=== PATIENT | male | born 1940 | race Caucasian/White ===

== ENCOUNTER → 2024-02-23 | Outpatient (CLI) | payer MEDICARE, BC, SELFPAY ==
[2024-02-23 11:17] LABS: Collection Type, Urine Clean Catch; Squamous Epithelial Cell,Urine 0 /hpf (0-5)
[2024-02-23 13:34] LABS: Bacteria,Urine 1+; Bilirubin,Urine Negative (Negative); Blood,Urine Negative (Negative); Clarity,Urine Clear (Clear/Hazy); Color,Urine Lt-Yellow (Lt Yel-Yel); Glucose, Urine Negative (Negative); Ketones,Urine Negative (Negative); Leukocyte Esterase,Urine Positive (Negative); Nitrite,Urine Negative (Negative); PH,Urine 6.5 (5.0-7.0); Protein,Urine Negative (Neg - Trace); RBC,Urine 3 /hpf (0-3); Specific Gravity,Urine 1.008 (1.001-1.035); Urobilinogen,Urine Negative mg/dL (0.0-1.0); WBC,Urine 48 /hpf (0-5)
== END | disposition home or self-care (01) ==
LOC: SLDO 11:01
PROVIDERS: PCP Physician Assistant; Referring Provider Physician Assistant; Visit Provider Physician Assistant
DX: N39.0 Urinary tract infection, site not specified (principal)
CPT/HCPCS: 81001; 87077; 87086; 87186

== ENCOUNTER → 2024-04-21 | Outpatient (CLI) | payer MEDICARE, BC, SELFPAY ==
[2024-04-21 11:42] LABS: Basophils # (Auto) 0.1 Thou/mm3 (0.0-0.2); Basophils % (Auto) 0 % (0-2.5); Eosinophils # (Auto) 0.8 Thou/mm3 (0.0-0.5); Eosinophils % (Auto) 7 % (0-10); Hematocrit 38.2 % (41.0-53.0); Hemoglobin 12.5 g/dL (13.5-16.0); Immature Granulocytes % (Auto) 0 % (0-0); Immature Granulocytes Auto 0.04 Thou/mm3 (0.00-0.00); Lymphocytes # (Auto) 2.1 Thou/mm3 (1.0-4.8); Lymphocytes % (Auto) 19 % (10-50); Mean Corpuscular HGB Conc 32.7 g/dl (31.0-37.0); Mean Corpuscular Hemoglobin 30.1 pg (25.0-35.0); Mean Corpuscular Volume 92 fL (80-100); Monocytes # (Auto) 0.7 Thou/mm3 (0.0-0.8); Monocytes % (Auto) 6 % (0-12); Neutrophils # (Auto) 7.5 Thou/mm3 (1.8-7.7); Neutrophils % (Auto) 68 % (37-80); Nucleated Red Blood Cell % 0 /100 WBC (0); Platelet Count 208 Thou/mm3 (140-440); RDW Standard Deviation 49.1 fL (35.1-43.9); Red Blood Count 4.15 Miln/mm3 (4.50-5.90); White Blood Count 11.1 Thou/mm3 (3.8-10.6)
[2024-04-21 11:59] LABS: Glucose Estimated Average 169 mg/dL (80-131); Hemoglobin A1C 7.5 % Hgb (4.8-6.0)
[2024-04-21 12:02] LABS: Alanine Aminotransferase 22 U/L (10-49); Albumin, Serum 3.3 gm/dL (3.4-4.8); Albumin/Globulin Ratio 1.4 (1.2-2.2); Alkaline Phosphatase 104 U/L (46-116); Anion Gap 8 (7-16); Aspartate Amino Transferase 17 U/L (0-34); BUN/Creatinine Ratio 31 Ratio (12-20); Bilirubin,Total 0.6 mg/dL (0.3-1.2); Blood Urea Nitrogen 31 mg/dL (9-23); Calcium 8.6 mg/dL (8.3-10.6); Calcium (Corrected) 9.2 mg/dL (8.5-10.1); Carbon Dioxide 30.9 mMol/L (20.0-31.0); Cardiac Risk Estimate 2.3 RATIO (4.0-6.7); Chloride 102 mMol/L (98-107); Cholesterol 80 mg/dL (132-200); Globulin 2.4 gm/dL (2.3-3.5); Glucose 63 mg/dL (74-106); HDL Cholesterol 35 mg/dL (40-60); LDL Cholesterol,Calculated 34 mg/dL (0-130); Osmolality,Calculated 285 (275-295); Potassium 4.2 mMol/L (3.4-5.1); Sodium 141 mMol/L (136-145); Thyroid Stimulating Hormone 3.01 uIU/mL (0.55-4.78); Total Protein 5.7 gm/dL (5.7-8.2); Triglycerides 53 mg/dL (30-150); eGFR > 60 See Note
[2024-04-21 12:27] LABS: Ferritin 303 ng/mL (10.5-307.3); Iron 47 mcg/dL (65-175)
== END | disposition home or self-care (01) ==
LOC: COPL 10:31 → SLDO 10:34
PROVIDERS: PCP Physician Assistant; Referring Provider Physician Assistant; Visit Provider Physician Assistant
DX: E11.65 Type 2 diabetes mellitus with hyperglycemia (principal); I10 Essential (primary) hypertension; E78.5 Hyperlipidemia, unspecified; E03.0 Congenital hypothyroidism with diffuse goiter; D50.9 Iron deficiency anemia, unspecified
CPT/HCPCS: 36415; 80053; 80061; 82728; 83036; 83540; 84443; 85025

== ENCOUNTER → 2024-05-05 | Outpatient (CLI) | payer MEDICARE, BC, SELFPAY ==
[2024-05-05 16:07] LABS: Collection Type, Urine Clean Catch
[2024-05-05 17:41] LABS: Bacteria,Urine 1+; Bilirubin,Urine Negative (Negative); Blood,Urine Negative (Negative); Clarity,Urine Clear (Clear/Hazy); Color,Urine Yellow (Lt Yel-Yel); Glucose, Urine Negative (Negative); Hyaline Casts,Urine < 1 /hpf (0-1); Ketones,Urine Negative (Negative); Leukocyte Esterase,Urine Positive (Negative); Nitrite,Urine Negative (Negative); PH,Urine 6.5 (5.0-7.0); Protein,Urine Trace (Neg - Trace); RBC,Urine 2 /hpf (0-3); Specific Gravity,Urine 1.018 (1.001-1.035); Squamous Epithelial Cell,Urine < 1 /hpf (0-5); Urobilinogen,Urine Negative mg/dL (0.0-1.0); WBC,Urine 64 /hpf (0-5)
== END | disposition home or self-care (01) ==
LOC: SLDO 15:44
PROVIDERS: PCP Physician Assistant; Referring Provider Physician Assistant; Visit Provider Physician Assistant
DX: N39.0 Urinary tract infection, site not specified (principal)
CPT/HCPCS: 81001; 87077; 87086; 87186

== ENCOUNTER → 2024-08-02 | Outpatient (CLI) | payer MEDICARE, BC, SELFPAY ==
[2024-08-02 11:54] LABS: Collection Type, Urine Clean Catch
[2024-08-02 13:03] LABS: Amphetamine/Methamp Scrn,U Negative (Negative); Barbiturate Screen,Urine Negative (Negative); Benzodiazepines Screen,Urine Negative (Negative); Benzoylecgonine Screen, Ur Negative (Negative); Creatinine MALB Rnd Ur 144 mg/dL (30-125); Fentanyl Screen,Urine Negative (Negative); Microalbumin Creat Ratio 147 mg/gCrea (<30); Microalbumin, Random Urine 212 mg/L (0-300); Opiate Screen,Urine Positive (Negative); THC Screen,Urine Negative (Negative)
[2024-08-02 13:07] LABS: Basophils % (Auto) 1 % (0-2.5); Eosinophils # (Auto) 0.4 Thou/mm3 (0.0-0.5); Eosinophils % (Auto) 5 % (0-10); Hematocrit 32.4 % (41.0-53.0); Hemoglobin 10.4 g/dL (13.5-16.0); Immature Granulocytes % (Auto) 0 % (0-0); Immature Granulocytes Auto 0.02 Thou/mm3 (0.00-0.00); Lymphocytes # (Auto) 1.2 Thou/mm3 (1.0-4.8); Lymphocytes % (Auto) 16 % (10-50); Mean Corpuscular HGB Conc 32.1 g/dl (31.0-37.0); Mean Corpuscular Hemoglobin 30.3 pg (25.0-35.0); Mean Corpuscular Volume 95 fL (80-100); Monocytes # (Auto) 0.5 Thou/mm3 (0.0-0.8); Monocytes % (Auto) 7 % (0-12); Neutrophils # (Auto) 5.1 Thou/mm3 (1.8-7.7); Neutrophils % (Auto) 71 % (37-80); Nucleated Red Blood Cell % 0 /100 WBC (0); Platelet Count 179 Thou/mm3 (140-440); RDW Standard Deviation 51.8 fL (35.1-43.9); Red Blood Count 3.43 Miln/mm3 (4.50-5.90); White Blood Count 7.1 Thou/mm3 (3.8-10.6)
[2024-08-02 13:12] LABS: Vitamin B12 707 pg/mL (211-911); Vitamin D 25 Hydroxy Total 39.6 ng/mL (7.3-40.2)
[2024-08-02 13:19] LABS: Alanine Aminotransferase 10 U/L (10-49); Albumin, Serum 3.4 gm/dL (3.4-4.8); Albumin/Globulin Ratio 1.5 (1.2-2.2); Alkaline Phosphatase 109 U/L (46-116); Anion Gap 13 (7-16); Aspartate Amino Transferase 13 U/L (0-34); BUN/Creatinine Ratio 17 Ratio (12-20); Bilirubin,Total 0.5 mg/dL (0.3-1.2); Blood Urea Nitrogen 20 mg/dL (9-23); Calcium 8.2 mg/dL (8.3-10.6); Calcium (Corrected) 8.7 mg/dL (8.5-10.1); Carbon Dioxide 30.9 mMol/L (20.0-31.0); Cardiac Risk Estimate 1.9 RATIO (4.0-6.7); Chloride 102 mMol/L (98-107); Cholesterol 72 mg/dL (132-200); Creatinine (Component) 1.2 mg/dL (0.6-1.3); Globulin 2.2 gm/dL (2.3-3.5); Glucose 78 mg/dL (74-106); HDL Cholesterol 38 mg/dL (40-60); LDL Cholesterol,Calculated 22 mg/dL (0-130); Osmolality,Calculated 292 (275-295); Potassium 4.5 mMol/L (3.4-5.1); Sodium 146 mMol/L (136-145); Thyroid Stimulating Hormone 2.64 uIU/mL (0.55-4.78); Total Protein 5.6 gm/dL (5.7-8.2); Triglycerides 60 mg/dL (30-150); eGFR > 60 See Note
[2024-08-02 13:36] LABS: Ferritin 260 ng/mL (10.5-307.3); Iron 35 mcg/dL (65-175); Prostate Specific Antigen 2.95 ng/mL (0-4.00)
[2024-08-02 13:39] LABS: Bacteria,Urine 1+; Bilirubin,Urine Negative (Negative); Blood,Urine Negative (Negative); Color,Urine Yellow (Lt Yel-Yel); Glucose, Urine Negative (Negative); Ketones,Urine Negative (Negative); Leukocyte Esterase,Urine Positive (Negative); Nitrite,Urine Negative (Negative); Protein,Urine 1+ (Neg - Trace); RBC,Urine 7 /hpf (0-3); Specific Gravity,Urine 1.023 (1.001-1.035); Squamous Epithelial Cell,Urine < 1 /hpf (0-5); WBC,Urine 130 /hpf (0-5)
[2024-08-02 13:53] LABS: Glucose Estimated Average 157 mg/dL (80-131); Hemoglobin A1C 7.1 % Hgb (4.8-6.0)
[2024-08-02 13:55] LABS: Culture Indicated,Urine Yes
[2024-08-02 13:56] LABS: Clarity,Urine Hazy (Clear/Hazy)
== END | disposition home or self-care (01) ==
LOC: SLDO 11:47
PROVIDERS: Referring Provider Physician Assistant; Visit Provider Physician Assistant
DX: D50.9 Iron deficiency anemia, unspecified (principal); D72.829 Elevated white blood cell count, unspecified; E03.9 Hypothyroidism, unspecified; E11.65 Type 2 diabetes mellitus with hyperglycemia; E78.5 Hyperlipidemia, unspecified; I10 Essential (primary) hypertension; Z79.891 Long term (current) use of opiate analgesic
CPT/HCPCS: 36415; 80053; 80061; 80307; 81001; 82043; 82306; 82570; 82607; 82728; 83036; 83540; 84153; 84443; 85025; 87077; 87086; 87186

== ENCOUNTER → 2024-08-19 | Outpatient (CLI) | payer MEDICARE, BC, SELFPAY ==
[2024-08-19 16:23] LABS: Collection Type, Urine Clean Catch
[2024-08-19 17:36] LABS: Bilirubin,Urine Negative (Negative); Blood,Urine Trace (Negative); Clarity,Urine Clear (Clear/Hazy); Color,Urine Yellow (Lt Yel-Yel); Glucose, Urine Negative (Negative); Hyaline Casts,Urine < 1 /hpf (0-1); Ketones,Urine Negative (Negative); Leukocyte Esterase,Urine Positive (Negative); Nitrite,Urine Negative (Negative); Protein,Urine 1+ (Neg - Trace); RBC,Urine 8 /hpf (0-3); Specific Gravity,Urine 1.024 (1.001-1.035); Squamous Epithelial Cell,Urine 1 /hpf (0-5); WBC,Urine 52 /hpf (0-5)
== END | disposition home or self-care (01) ==
LOC: SLDO 16:18
PROVIDERS: PCP Physician Assistant; Referring Provider Physician Assistant; Visit Provider Physician Assistant
DX: N39.0 Urinary tract infection, site not specified (principal)
CPT/HCPCS: 81001; 87086

== ENCOUNTER → 2024-08-26 | Outpatient (CLI) | payer MEDICARE, BC, SELFPAY ==
[2024-08-26 15:54] LABS: Collection Type, Urine Clean Catch
[2024-08-26 16:23] LABS: Bacteria,Urine 2+; Bilirubin,Urine Negative (Negative); Blood,Urine 1+ (Negative); Color,Urine Yellow (Lt Yel-Yel); Glucose, Urine Negative (Negative); Ketones,Urine Negative (Negative); Leukocyte Esterase,Urine Positive (Negative); Nitrite,Urine Positive (Negative); Protein,Urine 1+ (Neg - Trace); RBC,Urine 7 /hpf (0-3); Specific Gravity,Urine 1.016 (1.001-1.035); Squamous Epithelial Cell,Urine < 1 /hpf (0-5); Urobilinogen,Urine Negative mg/dL (0.0-1.0); WBC,Urine 718 /hpf (0-5)
[2024-08-26 16:32] LABS: Clarity,Urine Hazy (Clear/Hazy)
== END | disposition home or self-care (01) ==
LOC: SLDO 15:47
PROVIDERS: PCP Family Medicine; Referring Provider Physician Assistant; Visit Provider Physician Assistant
DX: N39.0 Urinary tract infection, site not specified (principal)
CPT/HCPCS: 81001; 87077; 87086; 87186

== ENCOUNTER → 2024-10-10 | Outpatient (CLI) | payer MEDICARE, BC, SELFPAY ==
[2024-10-10 14:38] LABS: Collection Type, Urine Clean Catch
[2024-10-10 16:41] LABS: Bacteria,Urine 1+; Bilirubin,Urine Negative (Negative); Blood,Urine 1+ (Negative); Clarity,Urine Turbid (Clear/Hazy); Color,Urine Drk-Yellow (Lt Yel-Yel); Glucose, Urine Negative (Negative); Hyaline Casts,Urine < 1 /hpf (0-1); Ketones,Urine Negative (Negative); Leukocyte Esterase,Urine Positive (Negative); Nitrite,Urine Positive (Negative); PH,Urine 6.0 (5.0-7.0); Protein,Urine 1+ (Neg - Trace); RBC,Urine 16 /hpf (0-3); Specific Gravity,Urine 1.030 (1.001-1.035); Squamous Epithelial Cell,Urine 1 /hpf (0-5); Urobilinogen,Urine 2.0 mg/dL (0.0-1.0); WBC,Urine 619 /hpf (0-5)
[2024-10-10 16:44] LABS: Culture Indicated,Urine Yes
== END | disposition home or self-care (01) ==
LOC: SLDO 14:28
PROVIDERS: PCP Nurse Practitioner Family; Referring Provider Nurse Practitioner Family; Visit Provider Nurse Practitioner Family
DX: N39.0 Urinary tract infection, site not specified (principal)
CPT/HCPCS: 81001; 87086

== ENCOUNTER → 2024-11-04 | Outpatient (CLI) | payer MEDICARE, BC, SELFPAY ==
[2024-11-04 15:33] LABS: Amphetamine/Methamp Scrn,U Negative (Negative); Barbiturate Screen,Urine Negative (Negative); Benzodiazepines Screen,Urine Negative (Negative); Benzoylecgonine Screen, Ur Negative (Negative); Fentanyl Screen,Urine Negative (Negative); Opiate Screen,Urine Positive (Negative); THC Screen,Urine Positive (Negative)
== END | disposition home or self-care (01) ==
LOC: SLDO 14:39
PROVIDERS: Referring Provider Physician Assistant; Visit Provider Physician Assistant
DX: Z79.891 Long term (current) use of opiate analgesic (principal)
CPT/HCPCS: 80307

== ENCOUNTER → 2024-11-07 | Outpatient (CLI) | payer MEDICARE, BC, SELFPAY ==
[2024-11-07 11:15] LABS: Basophils # (Auto) 0.1 Thou/mm3 (0.0-0.2); Basophils % (Auto) 1 % (0-2.5); Eosinophils # (Auto) 0.3 Thou/mm3 (0.0-0.5); Eosinophils % (Auto) 6 % (0-10); Hematocrit 36.6 % (41.0-53.0); Hemoglobin 11.4 g/dL (13.5-16.0); Immature Granulocytes Auto 0.01 Thou/mm3 (0.00-0.00); Lymphocytes # (Auto) 0.9 Thou/mm3 (1.0-4.8); Lymphocytes % (Auto) 18 % (10-50); Mean Corpuscular HGB Conc 31.1 g/dl (31.0-37.0); Mean Corpuscular Hemoglobin 30.1 pg (25.0-35.0); Mean Corpuscular Volume 97 fL (80-100); Monocytes # (Auto) 0.4 Thou/mm3 (0.0-0.8); Monocytes % (Auto) 7 % (0-12); Neutrophils # (Auto) 3.5 Thou/mm3 (1.8-7.7); Neutrophils % (Auto) 68 % (37-80); Nucleated Red Blood Cell # 0.00 Thou/mm3 (0.00-0.00); Nucleated Red Blood Cell % 0 /100 WBC (0); Platelet Count 170 Thou/mm3 (140-440); RDW Standard Deviation 59.7 fL (35.1-43.9); Red Blood Count 3.79 Miln/mm3 (4.50-5.90); White Blood Count 5.2 Thou/mm3 (3.8-10.6)
[2024-11-07 11:31] LABS: Alanine Aminotransferase 11 U/L (10-49); Albumin, Serum 3.5 gm/dL (3.4-4.8); Albumin/Globulin Ratio 1.5 (1.2-2.2); Alkaline Phosphatase 110 U/L (46-116); Anion Gap 11 (7-16); Aspartate Amino Transferase 18 U/L (0-34); BUN/Creatinine Ratio 17 Ratio (12-20); Bilirubin,Total 0.6 mg/dL (0.3-1.2); Blood Urea Nitrogen 22 mg/dL (9-23); Calcium 8.8 mg/dL (8.3-10.6); Calcium (Corrected) 9.2 mg/dL (8.5-10.1); Carbon Dioxide 26.9 mMol/L (20.0-31.0); Cardiac Risk Estimate 1.6 RATIO (4.0-6.7); Chloride 107 mMol/L (98-107); Cholesterol 80 mg/dL (132-200); Creatinine (Component) 1.3 mg/dL (0.6-1.3); Globulin 2.3 gm/dL (2.3-3.5); Glucose 101 mg/dL (74-106); HDL Cholesterol 49 mg/dL (40-60); LDL Cholesterol,Calculated 13 mg/dL (0-130); Osmolality,Calculated 292 (275-295); Potassium 4.3 mMol/L (3.4-5.1); Sodium 145 mMol/L (136-145); Thyroid Stimulating Hormone 4.67 uIU/mL (0.55-4.78); Total Protein 5.8 gm/dL (5.7-8.2); Triglycerides 89 mg/dL (30-150); eGFR 55 See Note
[2024-11-07 11:36] LABS: Glucose Estimated Average 154 mg/dL (80-131); Hemoglobin A1C 7.0 % Hgb (4.8-6.0)
[2024-11-07 11:38] LABS: Iron 45 mcg/dL (65-175)
[2024-11-07 11:55] LABS: Ferritin 306 ng/mL (10.5-307.3)
== END | disposition home or self-care (01) ==
LOC: SLDO 10:26
PROVIDERS: PCP Physician Assistant; Referring Provider Physician Assistant; Visit Provider Physician Assistant
DX: I10 Essential (primary) hypertension (principal); E11.65 Type 2 diabetes mellitus with hyperglycemia; D50.9 Iron deficiency anemia, unspecified; E03.9 Hypothyroidism, unspecified; E78.5 Hyperlipidemia, unspecified; R80.9 Proteinuria, unspecified; R31.9 Hematuria, unspecified
CPT/HCPCS: 36415; 80053; 80061; 82728; 83036; 83540; 84443; 85025

== ENCOUNTER → 2024-11-08 | Outpatient (CLI) | payer MEDICARE, BC, SELFPAY ==
[2024-11-08 15:00] LABS: Collection Type, Urine Clean Catch
[2024-11-08 17:27] LABS: Bacteria,Urine 4+; Bilirubin,Urine 2+ (Negative); Blood,Urine 2+ (Negative); Color,Urine Drk-Orange (Lt Yel-Yel); Glucose, Urine Negative (Negative); Hyaline Casts,Urine < 1 /hpf (0-1); Ketones,Urine Negative (Negative); Leukocyte Esterase,Urine Positive (Negative); Nitrite,Urine Positive (Negative); PH,Urine 6.5 (5.0-7.0); Protein,Urine 1+ (Neg - Trace); RBC,Urine 27 /hpf (0-3); Specific Gravity,Urine 1.032 (1.001-1.035); Squamous Epithelial Cell,Urine 1 /hpf (0-5); Urobilinogen,Urine 4.0 mg/dL (0.0-1.0); WBC,Urine 718 /hpf (0-5)
[2024-11-08 17:45] LABS: Clarity,Urine Cloudy (Clear/Hazy)
== END | disposition home or self-care (01) ==
LOC: SLDO 14:41
PROVIDERS: PCP Family Medicine; Referring Provider Physician Assistant; Visit Provider Physician Assistant
DX: N39.0 Urinary tract infection, site not specified (principal)
CPT/HCPCS: 81001; 87077; 87086; 87186

== ENCOUNTER 2024-11-27 16:14 | Inpatient (IN) | payer MEDICARE, BC, SELFPAY ==
[2024-11-27] VITALS (35 sets, daily range): BP systolic 71–142; BP diastolic 41–80; PULSE 75–110; RESP 15–37; TEMP 36.4–36.6; O2SAT 90–99; BMI 25.0
--- NOTE | 2024-11-27 16:29 | EKG_ITS ---
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
--- NOTE | 2024-11-27 16:46 | PD.EDSOB ---
ED SOB =RME/HPI General Chief Complaint: Shortness of Breath/Dyspnea Stated Complaint: SOB Time Seen by Provider: 11/27/24 16:27 Arrival date/time: 11/27/24 16:14 Limitations: no limitations RME / HPI RME / HPI Narrative: DR. MOLINA MAIN ED EVALUATION: 84-year-old male with past medical history of prostate cancer status post Lupron and radiation, congestive heart failure, open heart surgery with valve repair in 2002. Pulmonary fibrosis, and pacemaker placement presents to the Emergency Department with shortness of breath. He was noted to be hypoxic with O2 sat of 80% on arrival on his baseline 4 L. He denies chest pain, abdominal pain, fever, or chills. Patient has been feeling unwell for some time has been avoiding coming to the hospital and today asked his to call 911. Patient usually has to straight cath to empty his bladder however has been too weak to do so. Patient takes oral Bumex 4mg, spironolactone 25mg, aspirin, levothyroxine, tadalafil, ,atorvastatin Related Data Home Medications ?Medication ?Instructions ?Recorded ?Confirmed amlodipine 2.5 mg tablet 2.5 mg PO QDAY 05/14/21 04/15/23 omeprazole 20 mg capsule,delayed 20 mg PO BID 05/14/21 05/07/23 release ferrous sulfate 325 mg (65 mg 325 mg PO QDAY 04/15/23 05/07/23 iron) tablet insulin glargine 100 unit/mL (3 24 unit subcut HS 04/15/23 05/07/23 mL) subcutaneous pen (Lantus Solostar U-100 Insulin) Previous Rx's ?Medication ?Instructions ?Recorded bumetanide 0.5 mg tablet 2 mg (4 x 0.5 mg) PO QAM #0 tabs 05/09/23 Allergies Allergy/AdvReac Type Severity Reaction Status Date / Time No Known Allergies Allergy Verified 03/16/23 12:55 Review of Systems Review of Systems Systems Reviewed: All systems reviewed, normal except as documented Past Medical History Past Medical History NEUROLOGIC: Positive Cerebrovascular Accident CARDIAC: Positive Cardiac Disorders, Coronary Artery Disease, Hypercholesterolemia, Congestive Heart Failure, Valvular Heart Disease and Hypertension RESPIRATORY: Positive Chronic Obstructive Pulmonary Disease (COPD), Bronchitis, Pneumonia, Cough and Exposure to Respiratory Irritants GASTROINTESTINAL: Positive Gastrointestinal Disorders, Hiatal Hernia and Gastroesophageal Reflux Disease GENITOURINARY: Positive Genitourinary Disorders, Kidney Stones, Prostate Cancer and Benign Prostatic Hyperplasia MUSCULOSKELETAL: Positive Musculoskeletal Disorders, Arthritis and Scoliosis ENT: Positive Deafness ENDOCRINE: Positive Endocrine Disorders and Diabetes Mellitus Type 2 HEMATOLOGIC: Positive Anemia OTHER HISTORY: Positive Radiation Therapy, Cancer and Prostate Cancer Family History FAMILY HISTORY: Positive Family Cardiac Disorders and Family Cancer Surgical History SURGICAL: Positive Cardiac Surgery, Coronary Artery Bypass Graft and Vasectomy Social History SMOKING STATUS: Never smoker SUBSTANCE USE: does not use ED Exam General Limitations: Present no limitations General appearance: Present alert and other (chronically ill-appearing male who is dyspneic, tachypneic, and tachycardic in respiratory) Head Head exam: Present atraumatic, normocephalic and normal inspection Eye Eye exam: Present normal appearance, PERRL and EOMI ENT ENT exam: Present normal exam, normal oropharynx and mucous membranes moist Neck Neck exam: Present normal inspection and trachea midline Chest Chest inspection: Present normal inspection, symmetric chest wall rise and other (Coarse breath sounds bilaterally no wheezes) Respiratory Respiratory exam: Present other (dyspneic, tachypneic, in respiratory distress) Cardiovascular Cardiovascular exam: Present tachycardia Abdominal Exam Abdominal exam: Present soft; Absent distention, tenderness, guarding or rebound Extremities Exam Extremities exam: Present other (Bilateral lower extremity swelling) Back Exam Back exam: Present normal inspection Neurological Exam Neurological exam: Present alert and other (Answering questions appropriately however weak, able to move all 4 extremities however when) Psychiatric Psychiatric exam: Present normal affect and normal mood Skin Skin exam: Present warm, dry, intact and pallor Course Quality Measures none Orders Category Date Time Status Bedside COVID-19 Antigen Test NOW Care 11/27/24 17:24 Active Machine Tack Puller Q4H START 00 Care 11/27/24 16:55 Active EKG (ED ONLY) *Do not use* NOW Care 11/27/24 16:29 Completed Ritter [Urinary Catheter] X1 Care 11/27/24 16:54 Active Insert IV NOW Care 11/27/24 16:29 Active CXR [XR chest 1V] Stat Exams 11/27/24 17:29 Completed EKG (ED Only) Stat Exams 11/27/24 16:29 Ordered ABG [Arterial Blood Gas] Stat Lab 11/27/24 17:55 Ordered BNP [B-Type Natriuretic Peptide] Stat Lab 11/27/24 17:35 Received Blood Culture (Lab) Stat Lab 11/27/24 17:35 Received CBC [CBC] Stat Lab 11/27/24 16:35 Completed CMP [Comprehensive Metabolic Panel] Stat Lab 11/27/24 16:35 Completed Influenza A & B Rapid Panel Stat Lab 11/27/24 17:25 Ordered Lactate (Lactic Acid) Stat Lab 11/27/24 16:35 Completed Procalcitonin Stat Lab 11/27/24 16:35 Completed Troponin I Stat Lab 11/27/24 16:35 Completed Urinalysis Stat Lab 11/27/24 17:00 Completed Urine Culture Stat Lab 11/27/24 17:00 Received Azithromycin Inj [Zithromax Inj] 500 mg Med 11/28/24 14:00 Pending Sodium Chloride 0.9% 250 ml [Ns] 250 ml IV QDAY@1400 Azithromycin Inj [Zithromax Inj] 500 mg Med 11/27/24 17:30 Active Sodium Chloride 0.9% 250 ml [Ns] 250 ml IV X1 Norepinephrine/D5W 8mg/250ml [Levophed in D5W 8mg/250ml Med 11/27/24 16:31 Discontinued ] 8 mg in 250 ml IV 0.05 mcg/kg/min Norepinephrine/D5W 8mg/250ml [Levophed in D5W 8mg/250ml Med 11/27/24 16:35 Active ] 8 mg in 250 ml IV 0.05 mcg/kg/min cefTRIAXone [Rocephin] 1,000 mg Med 11/27/24 17:27 Discontinued SODIUM CHLORIDE 0.9% (Popper) [Ns 0.9% (P)] 50 ml IV X1 Vital Signs Vital signs: Vital Signs Temperature 97.6 F 11/27/24 16:16 Pulse Rate 102 H 11/27/24 16:16 Respiratory Rate 21 H 11/27/24 16:16 Blood Pressure 75/50 L 11/27/24 16:16 Pulse Oximetry (%) 98 11/27/24 16:16 Oxygen Delivery Method Oxy Mask 11/27/24 16:16 Shortness of Breath / Dyspnea MDM Narrative MDM Narrative:: Patient is an 84-year-old male with medical history notable for CHF, prostate cancer, that presents to the emergency department with worsening shortness of breath. Vital signs and exam as listed. Patient tachycardic and tachypnea concerning for sepsis. Ordered sepsis order set. EMS provided patient with 500 cc of saline. When patient arrived we stopped fluids given his history of CHF. Patient was persistently hypotensive we started him on Levophed. Also concern for CHF, ACS, COPD exacerbation, arrhythmia also concern for possible pulmonary embolus. Ordered labs EKG chest x-ray. Provided patient with supplemental oxygen. His oxygen saturation improved to greater than 95% on 15 L and is now comfortable, less dyspneic no longer hypoxic. Labs with evidence of leukocytosis 15, with left shift. Urinalysis with evidence of infection. Patient was incontinent when he arrived. Antibiotics provided. Procalcitonin elevated. He does have a history of prostate cancer not currently on treatment. Patient with acute kidney injury, creatinine 3.4, previously normal, elevated BUN, potassium 5.3. Patient lactic acid 3.0. Troponin 0.486, EKG is paced rhythm, does not meet Sgarbossa criteria. Patient declines any chest pain, has only been complaining of worsening progressive shortness of breath for some time. Chest x-ray with pneumonia and prominent heart failure. Discussed case with on-call coverage analyst Dr. Norton accepts patient for admission to ICU. 6:25p Called patient skin toggler Dr. Markell Linares, discussed patient presentation, worsening hypoxia , lower extremity edema, diffuse pulmonary vascular congestion seen on chest x-ray, his labs with evidence of leukocytosis, acute kidney injury, and elevated troponin. Also discussed that patient has pneumonia and a urinary tract infection. He believes the patient is dry and does not recommend that we provide diuresis at this time. He will evaluate the patient. I also consulted on-call tube sizer operator Dr. Sethi, will follow the patient. I updated the ICU resident team on patient's skin toggler recommendations . ICU team will check in with consultants for further recommendations, as the patient's care is now transitioned to the ICU team. Cheryl Martinez, am scribing for and in the presence of Dr. Molina. Patient data External records reviewed:: [facility] previous records Clinical information provided by:: patient and EMS Social determinants that could affect healthcare access:: none Patient has the following chronic illnesses:: Past medical history of prostate cancer status post Lupron and radiation, congestive heart failure, and pacemaker placement. At baseline, he requires 4 L of home oxygen. How is presenting disease/condition affected by chronic disease/condition?: exacerbated by Evaluation data The following diagnostics were reviewed and interpreted by me:: lab results, radiology exam(s) and EKG tracing(s) (My interpretation: EKG performed at 1629 hours, paced rhythm, rate 110, prolonged IN interval at 254, normal QT, non specific T wave changes, not a cardiac alert) Lab and/or radiology exams considered but not ordered:: none Interpretation Summary: See MDM narrative above. Medications / Prescriptions Medications or Prescriptions considered but not ordered:: none Medication administrations:: Medication Administration History Norepinephrine/Dextrose (Levophed In D5w 8mg/250ml) 8 mg in 250 mls @ 8.292 mls/hr IV .Q24H PRN; Protocol PRN Reason: PER PROTOCOL Stop: 12/27/24 16:34 Last Titration: 11/27/24 18:00 Dose: 0.05 mcg/kg/min, 8.292 mls/hr Documented By: Titration: 11/27/24 17:46 Dose: 0.05 mcg/kg/min, 8.292 mls/hr Documented By: Titration: 11/27/24 17:30 Dose: 0.07 mcg/kg/min, 11.609 mls/hr Documented By: Titration: 11/27/24 17:25 Dose: 0.07 mcg/kg/min, 11.609 mls/hr Documented By: Admin: 11/27/24 17:20 Dose: 0.05 mcg/kg/min, 8.292 mls/hr Documented By: YOVANI Azithromycin 500 mg/ Sodium (Chloride) 250 mls @ 250 mls/hr IV QDAY@1400 JOAN Stop: 12/05/24 13:59 Azithromycin 500 mg/ Sodium (Chloride) 250 mls @ 250 mls/hr IV X1 ONE Stop: 11/27/24 18:29 Discontinued Medications Norepinephrine/Dextrose (Levophed In D5w 8mg/250ml) 8 mg in 250 mls @ 8.292 mls/hr IV .Q24H PRN; Protocol PRN Reason: PER PROTOCOL Stop: 12/27/24 16:30 Ceftriaxone Sodium 1,000 mg/ (Sodium Chloride) 50 mls @ 100 mls/hr IV X1 ONE Stop: 11/27/24 17:56 Last Admin: 11/27/24 17:39 Dose: 100 mls/hr Documented By: DB see above Consultations Consultation(s) initiated? (list below): Yes Diagnosis Shortness of Breath Differential Diagnosis: other (CHF exacerbation, COPD exacerbation, and pneumonia.) Most likely diagnosis given after review of the tests above:: Septic shock, cardiogenic shock, urinary tract infection, pneumonia, CHF exacerbation, hypoxic respiratory failure Admission Indicated Admission indicated?: indicated Admission Request Was there a request for admission?: Yes Admission Attestation Admission request attestation: Discussed case with Hospitalist service regarding admission. Discussed patients ED course, exam findings, labs, and radiology results. The Hospitalist [agrees] to accept the patient for admission. Disposition Plan Disposition Plan: Admit Critical Care Time Critical Care Time Critical Care Time: Yes Total Critical Care Time (min.): 60 Attestation: The high probability of sudden, clinically significant deterioration in the patient?s condition required the highest level of my preparedness to intervene urgently. The services I provided to this patient were to treat and/or prevent clinically significant deterioration. Services included the following: chart data review, reviewing nursing notes and/or old charts, documentation time, sap treasury consultant collaboration regarding findings and treatment options, medication orders and management, direct patient care, vital sign assessments and ordering, interpreting and reviewing diagnostic studies and lab tests. Aggregate critical care time includes only time during which I was engaged in work directly related to the patient?s care, as described above, whether at bedside or elsewhere in the Emergency Department. It did not include time spent performing other reported procedures or the services of residents, students, nurses or physician assistants. Discharge Plan Plan Patient Disposition: Admit Acute Care w/in Hospital Prescriptions/Referrals Prescriptions/Med Rec: No Action amlodipine 2.5 mg tablet 2.5 mg PO QDAY Patient Comments: TAKE 1 TABLET BY MOUTH EVERY DAY omeprazole 20 mg capsule,delayed release(DR/EC) 20 mg PO BID Patient Comments: TAKE 1 CAPSULE BY MOUTH TWICE DAILY ferrous sulfate 325 mg (65 mg iron) Tablet 325 mg PO QDAY insulin glargine [Lantus Solostar U-100 Insulin] 100 unit/mL (3 mL) Insulin Pen 24 unit SUBCUT HS bumetanide 0.5 mg Tablet 2 mg PO QAM Qty: 0 0RF Referrals: No Primary/Family,Physician [Primary Care Provider] - In 1 week Problem List Clinical Impression: Septic shock, Cardiogenic shock, CHF exacerbation, Pneumonia, Urinary tract infection Patient/Caregiver Discharge Instructions Print Language: Korean Stand Alone Forms: Cherri Award Info., Patient Portal Info Letter
[2024-11-27 16:49] LABS: Lactate (Lactic Acid) 3.0 mMol/L (0.4-2.0)
[2024-11-27 17:19] LABS: Basophils # (Auto) 0.0 Thou/mm3 (0.0-0.2); Basophils % (Auto) 0 % (0-2.5); Eosinophils # (Auto) 0.0 Thou/mm3 (0.0-0.5); Eosinophils % (Auto) 0 % (0-10); Hematocrit 39.7 % (41.0-53.0); Hemoglobin 12.6 g/dL (13.5-16.0); Immature Granulocytes Auto 0.18 Thou/mm3 (0.00-0.00); Lymphocytes # (Auto) 0.5 Thou/mm3 (1.0-4.8); Lymphocytes % (Auto) 3 % (10-50); Mean Corpuscular HGB Conc 31.7 g/dl (31.0-37.0); Mean Corpuscular Hemoglobin 31.1 pg (25.0-35.0); Mean Corpuscular Volume 98 fL (80-100); Monocytes # (Auto) 0.8 Thou/mm3 (0.0-0.8); Monocytes % (Auto) 5 % (0-12); Neutrophils # (Auto) 13.9 Thou/mm3 (1.8-7.7); Neutrophils % (Auto) 90 % (37-80); Nucleated Red Blood Cell # 0.00 Thou/mm3 (0.00-0.00); Nucleated Red Blood Cell % 0 /100 WBC (0); Platelet Count 144 Thou/mm3 (140-440); RDW Standard Deviation 66.8 fL (35.1-43.9); Red Blood Count 4.05 Miln/mm3 (4.50-5.90); White Blood Count 15.5 Thou/mm3 (3.8-10.6)
[2024-11-27] MEDS: Norepinephrine/D5W 8mg/250ml 8 MG/250 ML BAG 8.292 MG IV (17:20)
[2024-11-27 17:22] LABS: Collection Type, Urine Clean Catch
--- NOTE | 2024-11-27 17:29 | XR_ITS ---
Examination: AP chest single view Technique one AP portable semiupright chest single view Date and time: November 27, 2024, 1733 hrs., Comparison May 08, 2023 Indications: Shortness of breath today. Findings: Prominent CHF Enlarged cardiac contour, ectatic enlarged thoracic aorta, prominent vascular congestion with perihilar edema, consider superimposed extensive pneumonia throughout the lungs Transvenous dual-chamber bipolar cardiac leads satisfactory position Impression: Prominent heart failure Consider superimposed significant bilateral pneumonia
[2024-11-27 17:34] LABS: Bacteria,Urine 3+; Bilirubin,Urine Negative (Negative); Blood,Urine 2+ (Negative); Clarity,Urine Turbid (Clear/Hazy); Color,Urine Yellow (Lt Yel-Yel); Glucose, Urine Negative (Negative); Ketones,Urine Negative (Negative); Leukocyte Esterase,Urine Positive (Negative); Nitrite,Urine Negative (Negative); PH,Urine 6.0 (5.0-7.0); Protein,Urine 2+ (Neg - Trace); RBC,Urine 20 /hpf (0-3); Specific Gravity,Urine 1.028 (1.001-1.035); Squamous Epithelial Cell,Urine 14 /hpf (0-5); Transitional Epi Cells,Urine 1 /hpf (0-5); Urobilinogen,Urine Negative mg/dL (0.0-1.0); WBC,Urine 2356 /hpf (0-5)
[2024-11-27] MEDS: cefTRIAXone 1,000 MG in SODIUM CHLORIDE 0.9% (Popper) 50 ML 100 MG IV (17:39)
[2024-11-27 17:48] LABS: Alanine Aminotransferase 14 U/L (10-49); Albumin, Serum 3.1 gm/dL (3.4-4.8); Albumin/Globulin Ratio 1.3 (1.2-2.2); Alkaline Phosphatase 154 U/L (46-116); Anion Gap 11 (7-16); Aspartate Amino Transferase 23 U/L (0-34); BUN/Creatinine Ratio 12 Ratio (12-20); Bilirubin,Total 0.4 mg/dL (0.3-1.2); Blood Urea Nitrogen 40 mg/dL (9-23); Calcium 8.6 mg/dL (8.3-10.6); Calcium (Corrected) 9.3 mg/dL (8.5-10.1); Carbon Dioxide 23.3 mMol/L (20.0-31.0); Chloride 105 mMol/L (98-107); Creatinine (Component) 3.4 mg/dL (0.6-1.3); Estimated Creatinine Clearance 19.5 mL/min (>60); Globulin 2.4 gm/dL (2.3-3.5); Glucose 136 mg/dL (74-106); Osmolality,Calculated 289 (275-295); Potassium 5.3 mMol/L (3.4-5.1); Procalcitonin 4.62 ng/ml (0.0-0.49); Sodium 139 mMol/L (136-145); Total Protein 5.5 gm/dL (5.7-8.2); eGFR 17 See Note
[2024-11-27 18:03] LABS: Troponin I 0.486 ng/mL (0.0-0.045)
[2024-11-27] MEDS: AZITHROMYCIN INJ 500 MG in SODIUM CHLORIDE 0.9% 250 ML 250 ML 250 MG IV (18:23)
[2024-11-27 18:26] LABS: Base Excess -3 (-3-3); HCO3 23 mEq/L (20-26); O2 Saturation 97 % (91-98); PCO2 45 mmHg (32.0-48.0); PO2 87 mmHg (83-108); pH, Arterial 7.32 (7.35-7.45)
[2024-11-27 18:28] LABS: Allen Test Performed/OK; Inspired O2, VO2 Liters 6 L/min; Puncture Site Right Radial
[2024-11-27] MEDS: fentaNYL CIT INJ 50 mCg/ML AMP 2ML IVP (18:30)
[2024-11-27 18:36] LABS: B-Type Natriuretic Peptide 1845 pg/mL (0-100)
--- NOTE | 2024-11-27 19:07 | ECHO_ITS ---
Transthoracic Echo Report Ht (in): 74 Wt (lb): 195 Exam Location: Echo Lab Status: Emergency Application Software Developer: Jessica Maddne Indications: Procedure Performed: BP: 87 / 46 HR: 61 MEASUREMENTS (Male / Female) Normal Values 2D ECHO LV Diastolic Diameter PLAX 3.9 cm 4.2 - 5.9 / 3.9 - 5.3 cm LV Systolic Diameter PLAX 2.5 cm IVS Diastolic Thickness 0.8 cm 0.6 - 1.0 / 0.6 - 0.9 cm LVPW Diastolic Thickness 1.2 cm 0.6 - 1.0 / 0.6 - 0.9 cm LV Relative Wall Thickness 0.5 LVOT Diameter 1.9 cm LA Volume Index 28.1 cm?/m? 16 - 28 cm?/m? Ascending Aorta Diameter 3.5 cm M-MODE AV Cusp Separation MM 0.9 cm DOPPLER AV Peak Velocity 130.0 cm/s AV Peak Gradient 6.8 mmHg AV Mean Gradient 5.0 mmHg AV Velocity Time Integral 21.3 cm LVOT Peak Velocity 105.0 cm/s LVOT Peak Gradient 4.4 mmHg LVOT Velocity Time Integral 15.4 cm LVOT Cardiac Index 1236.2 cm?/min?m? AV Area Cont Eq vti 2.0 cm? AV Area Cont Eq pk 2.3 cm? MV Area PHT 2.8 cm? Mitral E Point Velocity 121.0 cm/s Mitral A Point Velocity 81.5 cm/s Mitral E to A Ratio 1.5 TR Peak Velocity 394.0 cm/s TR Peak Gradient 62.1 mmHg PV Peak Velocity 100.0 cm/s PV Peak Gradient 4.0 mmHg FINDINGS Left Ventricle Normal left ventricular size, wall thickness. Mild systolic dysfunction. Hypokinesis septal wall. Dyskinetic mid anterior wall. Flattened septal wall due to RV pressure and volume overload. The ejection fraction is visually estimated at 45 %. Right Ventricle The right ventricle is sevrely dilated. Severe systolic dsfunction. The estimated right ventricular systolic pressure, 75 mmHg with RAP 8. Severe PHTN Left Atrium The left atrial cavity size is mildly increased. Right Atrium The right atrial cavity size is moderately increased. Atrial Septum The interatrial septum appears normal with no evidence of a shunt. Aorta The aorta is normal by two-dimensional, color flow and Doppler interrogation. Mitral Valve Moderate thickening of the mitral valve leaflets. Mild mitral regurgitation. Severely decreased mobility of the posterior and anterior mitral valve leaflet. Aortic Valve Aortic valve sclerosis without stenosis. Tricuspid Valve The tricuspid valve is normal by two-dimensional, color flow and Doppler interrogation.there is moderate to severe tricuspid valve regurgitation. Pulmonic Valve Moderate pulmonic valve regurgitation. Vessels The pulmonary artery appears normal. The inferior vena cava pulmonary and hepatic veins appear normal. Pericardium The pericardium is normal by two-dimensional imaging. There is no significant pericardial effusion. CONCLUSIONS Indication: Assess EF, wall motion abnormalities, valvular function. Right atrium is dilated. Right ventricle is markedly dilated 5.5 cm in diameter twice the size of left ventricle with right ventricle pressure and volume overload consistent with severe pulmonary hypertension. Severe right ventricular systolic dysfunction. Left ventricle is normal in size with flattening of the septum which is deviated towards the left ventricle due to increased RV systolic pressure rest of the left ventricle wall motion normal ejection fraction of 45 to 50% preserved. Left atrium is mildly dilated. Aortic valve sclerosis no stenosis. Mitral valve thickening trace to mild mitral regurgitation. Severe tricuspid regurgitation with TR velocity 4 m/s estimated pulmonary artery pressure 80 mmHg consistent with severe pulmonary hypertension. Moderate pulmonic valve regurgitation. Dilated inferior vena cava 2.3 cm due to increased right heart pressures. Adelina Andrade (Electronically Signed) Final Date: 28 November 2024 12:13
--- NOTE | 2024-11-27 19:07 | XR_ITS ---
Examination: Venous duplex lower extremity sonogram, bilateral. Date and time of exam: November 19, 2024, 1924 hrs. Indications: Shortness of breath several weeks, hypertension, immobilization, bilateral leg pain Technique: Multiple sonographic images of the deep venous system have been obtained. B-mode/2-D grayscale imaging of vascular structures and Doppler spectral analysis (waveforms) and color performed Both legs are examined. Findings: Deep venous systems do not demonstrate abnormal echogenicity. All visualized deep veins exhibit compressibility. All visualized deep veins exhibit augmentation. Impression: Negative for deep vein thrombosis
--- NOTE | 2024-11-27 19:09 | ESHP_ITS ---
<Statement entered by Mohamud Crooks MD - 11/28/24 15:19> I saw and examined patient personally and supervised PGY 1 resident, Dr. Friend with formulating a management plan. I agree with the documentation with the exceptions as listed below. 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 Problem list: 1. Shock?likely cardiogenic with possible distributive component 2. Troponinemia?NSTEMI type I versus type II 3. Acute decompensated chronic systolic congestive heart failure exacerbation [last EF 45% from 2023] 4. UTI?previously had multiple urine cultures showing MDR organisms 5. CAP 6. Pulmonary fibrosis 7. Severe pulmonary hypertension 8. Acute kidney injury prerenal versus renal 9. Mild lactic acidosis 10. NAGMA 11. Leukocytosis 12. Thrombocytopenia 13. IDDM type II 14. Hypothyroidism Patient presented with worsening shortness of breath and was found to have a blood pressure of 75/50 on arrival with a MAP of 58 this was after he received 500 cc normal saline IVF bolus on the ambulance en route. The decision to start norepinephrine was made by the ED physician. On our assessment, patient had grossly elevated JVD, chest wall retractions, mouth breathing, scattered coarse crackles throughout all lung [place], scrotal edema and bilateral lower limb edema up to the hips, worse on the right. Bedside echo also showed a dilated, none collapsible IVC and severely reduced EF. No signs of cardiac tamponade or tension pneumothorax. Patient's initial urinalysis was also positive for leukocyte esterase and 2356 WBCs. He also has a recurrent history of UTIs over the years mostly with MDR organisms. At this point the working diagnosis for her shock was cardiogenic in nature with a possible concomitant distributive component. The decision was made to attempt diuresis with Bumex 2 Mg IV x 1 and obtain a NICOM monitor to assess cardiac index, SVI and TPRI to further classify the etiology of shock. Patient has baseline chronic systolic congestive heart failure estimated EF 45% from previous echo on file. Also of note is that patient's has severe pulmonary fibrosis as seen on previous CT chest scans dating as far back as 2018. From his previous echocardiogram April 2023 patient also had severe pulmonary hypertension with RVSP 63 mmHg and RAP 15. This also exacerbated patient's shortness of breath. His checks x-ray on this admission was also suspicious for possible bibasilar pneumonia. At baseline his states that he uses 5L home oxygen as needed which has been almost [id number] for the past week since this recent episode. He has severe shortness of breath at rest and exacerbated by even minimal movement such as transferring from the bed to his commode. Is also a possibility he may be having a pulmonary fibrosis flare. May consider a short course of steroids or possible comfort care if refractory to supportive measures. Cardiology, Dr. Markell Linares was consulted. We appreciate recommendations. For patient's UTI, we will empirically treat with Zosyn and vancomycin due to concern for MDR as well as MRSA based on patient's previous urine culture results. Based on current admission urine culture results we will tailor antibiotic regimen. Plan of care discussed with Attending Dr. Errol Crooks MD PGY 2 Disclaimer: This note was dictated by speech recognition. 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 According to patient's , he has been getting progressively worsening fatigue, malaise, and shortness of breath over the past 2 weeks. At baseline, he uses 5 L O2 (began using 3 L O2 in April 2021) and experiences shortness of breath on minimal exertion such as transferring from the bed to the commode. However, over the past week, he has been getting shortness of breath even at rest. At baseline, he has a 45 degree orthopnea and for the past week has been experiencing episodes of PND as well. His legs are normally swollen at baseline but have not worsened over the past week. He reports compliance with his medication and denies eating any salty food recently. However, patient's endorses that he constantly drinks more than 50 ounces of iced water per day along with 7-Up. He endorses burning and pain with urination but denies any complaints of chest pain/pressure or palpitations as well as any nausea/vomiting, fevers, sick contacts or recent travel. Patient's says that he has not left the house in 1-1/2 years and only interacts with her. 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 He dropped out of high school in grade 10 and has been to his for the past 60 years but they have no children. Previously was a heavy drinker but quit about 40 years ago. Denies smoking history but has extensive secondhand smoke exposure from his friends and family. Denies any illicit drug use. Patient's Code Status is DNR/DNI. Medications: PO Bumex 2 mg qAM, PO Synthroid 0.025 mcg qAM, PO Entresto 24-26 BID, PO ferrous sulfate 325 BID, PO omeprazole 20 mg BID, PO aspirin 162 mg BID, PO nitrofurantoin 50 mg qHS, PO spironolactone 25 mg qHS, PO tadalafil 20 mg qHS, PO atorvastatin 20 mg qHS, Lantus Solostar Pen 3 mL 20 U qHS, PO [place] 5- 325 prn, PO phenazopyridine 100 mg prn In the ED, vitals showed: BP 75/50 HR 102 RR 21 Temp 97.6 SpO2 98% on 15 L Oxygen Mask ED Course: CBC showed WBC 15.5, hemoglobin 12.6 (MCV 98, RDW 66.8), and platelet count 144. ABG of right radial artery showed pH 7.32, pCO2 45, pO2 87, and HCO3 23.3. CMP showed potassium 5.3, BUN 40, creatinine 3.4 (baseline of 1.0 from 04/21/24), eGFR 17, lactic acid 3.0, alkaline phosphatase 154, troponin I 0.486, BNP 1845, albumin 3.1, and procalcitonin 4.62. UA showed turbid, yellow urine with 2+ protein, 2+ blood, positive leukocyte esterase, U RBC 20, U WBC 2356, U squamous epithelial cells 14, and 3+ bacteria. Imagin11/27/24 CXR showed prominent congestive heart failure with enlarged cardiac contour, ectatic enlarged thoracic aorta, prominent vascular congestion with perihilar edema, and satisfactory positioning of pacemaker. It also showed findings that were suspicious for significant bilateral pneumonia. In the ED, patient was started on IV Levophed 0.05 and given IV ceftriaxone 1 gm x 1, IV azithromycin 500 mg x 1, IV fentanyl 50 mcg x 1, and IV Bumex 2 mg x 1. Patient was admitted for the work-up and management of undifferentiated shock requiring pressors in the setting of likely CHF exacerbation, CASSANDRA, lactic acidosis, possible pneumonia, and UTI. Cardiology has been consulted. Review of Systems Review of Systems Systems Reviewed: All systems reviewed, normal except as documented Exam Vital Signs Temp Pulse Resp BP Pulse Ox O2 Del Method O2 Flow Rate 97.8 F 94 22 H 109/75 94 L Oxy Mask 6 11/27/24 18:02 11/27/24 19:00 11/27/24 19:00 11/27/24 19:00 11/27/24 19:00 11/27/24 19:00 11/27/24 19:00 Narrative Exam General: A/O x3 elderly male in some distress. Skin: Overall dry but intact and without obvious rash. Head: Normocephalic, atraumatic. Eyes: PERRL, EOMI. Anicteric, vision grossly intact. Ears: No ear pain, no ear discharge, Hearing grossly intact. Extra skin growth originating from tragus noted on left ear. Nose: No nasal discharge. Mouth/Throat: Black stains around mouth ( says its from cough drops he likes to use to keep his mouth moist). Oral mucosa dry. No obvious lesions in oropharynx. Dentition in fairly good shape. Cardiovascular: Regular rate and irregular rhythm, 2 cm JVD, no murmur, or carotid bruits. +S1/S2. Vertical cicatrix over sternum. Bedside echocardiogram seemed to show poor EF and dilated chambers. Respiratory: Diffuse crackles of posterior lung [place] bilaterally, particularly at the bases, respirations seem somewhat labored, expiratory groaning, no wheezing. No accessory muscle use. Gastrointestinal: Generalized tenderness to palpation of lower quadrants of the abdomen, especially suprapubic region. Soft, non-distended, no palpable masses. No guarding or rebound tenderness. Normoactive bowel sounds present. Genitourinary: Diffusely swollen scrotum without palpable masses, circumcised penis with Ritter catheter in place draining urine with yellow-tinged pus noted in the tubing. Extremities: Severe dryness of bilateral lower extremities with flaking and scaling that is worse on the left. Yellow discoloration and thickening of toenails, particularly at the halluces bilaterally. Area of blackening noted under right hallux toenail. Top half of left hallux toenail broken off. Mild duskiness of plantar surface of right hallux and more pronounced duskiness of left hallux and left second toe. Bilateral fingernails untrimmed with subungual discoloration and debris. 4+ pitting edema of right foot up to hips and 1+ pitting edema of left foot up to hips. 1+ radial pulse bilaterally. Neuro: No focal deficits observed. Conversant, moving all extremities. No overt cerebellar signs/incoordination. Psychiatric: Cooperative, appropriate affect. Results: Labs 11/28/24 05:25 11/28/24 05:25 Labs: Short CBC 11/27/24 Range/Units 16:35 WBC 15.5 H (3.8-10.6) Thou/mm3 Hgb 12.6 L (13.5-16.0) g/dL Hct 39.7 L (41.0-53.0) % Plt Count 144 (140-440) Thou/mm3 BMP 11/27/24 16:35 Sodium 139 Potassium 5.3 H Chloride 105 Carbon Dioxide 23.3 BUN 40 H Creatinine 3.4 H Glucose 136 H Calcium 8.6 Cardiac Enzymes 11/27/24 Range/Units 16:35 Troponin I 0.486 H* (0.0-0.045) ng/mL Liver Function 11/27/24 Range/Units 16:35 Total Bilirubin 0.4 (0.3-1.2) mg/dL AST 23 (0-34) U/L ALT 14 (10-49) U/L Alkaline Phosphatase 154 H (46-116) U/L Albumin 3.1 L (3.4-4.8) gm/dL Urine 11/27/24 Range/Units 17:00 Urine Color Yellow (Lt Yel-Yel) Urine Clarity Turbid A (Clear/Hazy) Urine pH 6.0 (5.0-7.0) Ur Specific [place] 1.028 (1.001-1.035) Urine Protein 2+ A (Neg - Trace) Urine Glucose (UA) Negative (Negative) ABG Interpretation ABG results: 11/27/24 18:22 ABG pH 7.32 L ABG pCO2 45 ABG pO2 87 ABG HCO3 23 ABG O2 Saturation 97 ABG Base Excess -3 Quality Measures Quality Measures none Advance care planning discussed with:: patient Medications Home Medications and Allergies Home Medications ?Medication ?Instructions ?Recorded ?Confirmed ?Type amlodipine 2.5 mg tablet 2.5 mg PO QDAY 05/14/2104/02 History omeprazole 20 mg capsule,delayed 20 mg PO BID 05/14/21 05/07/23 History release ferrous sulfate 325 mg (65 mg 325 mg PO QDAY 04/15/23 05/07/23 History iron) tablet insulin glargine 100 unit/mL (3 24 unit subcut HS 04/0205/07/23 History mL) subcutaneous pen (Lantus Solostar U-100 Insulin) Allergies Allergy/AdvReac Type Severity Reaction Status Date / Time No Known Allergies Allergy Verified 03/16/23 12:55 Visit Medications Acetaminophen (Acetaminophen 325 Mg Tablet) 650 mg PO Q6H PRN PRN Reason: Fever >100 or pain 1-3 Stop: 12/27/24 18:54 Hydrocodone Bitart/Acetaminophen (Hydrocodone/Apap 5/325 Tablet) 1 tab PO Q6HR PRN PRN Reason: PAIN SCALE 4-10(Mod-Sev Stop: 12/02/24 19:03 Albuterol/Ipratropium (Albuterol/Ipratropium (Duoneb) Rt Divine 3 Ml Nebu) 3 ml INH Q2HR PRN PRN Reason: SHORTNESS OF BREATH OR WHEEZE Stop: 12/27/24 18:54 Bumetanide (Bumetanide Inj 0.25 Mg/Ml Vial 4 Ml) 2 mg IVP X1 ONE Stop: 11/27/24 19:07 Dextrose (Dextrose 50%-Water Inj 50 Ml Syringe) 50 ml IV Q15MIN PRN PRN Reason: BG <50 OR BG <70 & pt unresponsive Stop: 12/27/24 19:03 Glucagon (Glucagon Inj 1 Mg Vial) 1 mg IM Q15MIN PRN PRN Reason: BG <70, and no IV access Heparin Sodium (Porcine) (Heparin Sod Inj 5000 Unit/Ml Vial) 5,000 unit SC Q8HR JOAN Stop: 12/11/24 21:59 Norepinephrine/Dextrose (Levophed In D5w 8mg/250ml) 8 mg in 250 mls @ 8.292 mls/hr IV .Q24H PRN; Protocol PRN Reason: PER PROTOCOL Stop: 12/27/24 16:34 Last Titration: 11/27/24 18:55 Dose: 0.05 mcg/kg/min, 8.292 mls/hr Piperacillin/Tazobactam/Dextrose (Zosyn) 2.25 gm in 50 mls @ 100 mls/hr IV Q8HR JOAN; Protocol Stop: 12/04/24 21:59 Insulin Human Lispro (Insulin Lispro (Admelog) 1 Unit/0.01 Ml Unit) 0 unit SC [facility]; Protocol Stop: 12/27/24 20:59 Levothyroxine Sodium (Levothyroxine Sodium 25 Mcg Tablet) 25 mcg PO ACBR JOAN Stop: 12/28/24 05:59 Ondansetron HCl (Ondansetron Inj 2 Mg/Ml Inj 2 Ml) 4 mg IVP Q6H PRN; Protocol PRN Reason: NAUSEA OR VOMITING Stop: 12/27/24 18:54 Discontinued Medications Fentanyl Citrate (Fentanyl Cit Inj 50 Mcg/Ml Amp 2ml) 50 mcg IVP X1 ONE Stop: 11/27/24 18:17 Last Admin: 11/27/24 18:30 Dose: 50 mcg Norepinephrine/Dextrose (Levophed In D5w 8mg/250ml) 8 mg in 250 mls @ 8.292 mls/hr IV .Q24H PRN; Protocol PRN Reason: PER PROTOCOL Stop: 12/27/24 16:30 Ceftriaxone Sodium 1,000 mg/ (Sodium Chloride) 50 mls @ 100 mls/hr IV X1 ONE Stop: 11/27/24 17:56 Last Infusion: 11/27/24 18:26 Dose: Infused Azithromycin 500 mg/ Sodium (Chloride) 250 mls @ 250 mls/hr IV QDAY@1400 JOAN Stop: 12/05/24 13:59 Azithromycin 500 mg/ Sodium (Chloride) 250 mls @ 250 mls/hr IV X1 ONE Stop: 11/27/24 18:29 Last Admin: 11/27/24 18:23 Dose: 250 mls/hr Assessment & Plan Plan Patient is an 84-year-old male with a PMH of CAD status post CABG 2001 and pacemaker implant in May 2023, hypothyroidism, prostate cancer status post radiation therapy in 2001 and hormonal treatments (uncertain of remission status, last visit to the oncologist was in 2019), 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 Patient was admitted for the work-up and management of undifferentiated shock requiring pressors in the setting of likely CHF exacerbation, CASSANDRA, lactic acidosis, possible pneumonia, and UTI. Cardiology has been consulted. NEURO No active problems CARDIO #Undifferentiated shock, currently suspect cardiogenic etiology Dx: -11/27/24 CXR showed prominent congestive heart failure with enlarged cardiac contour, ectatic enlarged thoracic aorta, prominent vascular congestion with perihilar edema, and satisfactory positioning of pacemaker. -Bedside echo showed poor EF and dilated chambers -Last echocardiogram in 2023 showed reduced EF of 45% -Procalcitonin 4.62, supporting possible ongoing systemic inflammation, sepsis, or severe bacterial infection -BNP 1845 Rx: -CHEETA w/ passive leg raise -IV Levophed to maintain MAP > 65 #Troponinemia, likely Type II NSTEMI DDx: Type I NSTEMI, CHF exacerbation, CASSANDRA Dx: -Admission troponin I 0.486 Rx: -Repeat troponin level -Treat underlying cause of likely demand ischemia from shock #CAD s/p CABG -Continue aspirin and statin #Acute decompensated chronic systolic and diastolic heart failure exacerbation [last EF 45% from 2023] Dx: -11/27/24 CXR showed prominent congestive heart failure with enlarged cardiac contour, ectatic enlarged thoracic aorta, prominent vascular congestion with perihilar edema, and satisfactory positioning of pacemaker. -Bedside echo showed poor EF and dilated chambers -Last echocardiogram in 2023 showed reduced EF of 45% -BNP 1844 Rx: -IV Bumex 2 mg x 1 -Fluid restriction -Strict I's & O's -Ordered echocardiogram -Cardiology consulted PULM #Pulmonary fibrosis from second-hand smoke exposure Dx: -Previous chest CTs show evidence of pulmonary fibrosis -Patient observed to be on 6 L Oxygen Mask at time of interview Rx: -INH Duoneb 3 mL q2HR prn -Venous doppler ultrasound of bilateral lower extremities to assess for DVT #Pulmonary hypertension -Stable GI #No active problems NEPHRO #Possible cardiorenal syndrome -CHF exacerbation, poor kidney perfusion -> CASSANDRA #CASSANDRA -Creatinine 3.4 (baseline of 1.0 from 04/21/24) -Treat underlying cause which is likely hypotension (with Levophed) #Lactic acidosis Likely 2/2 tissue hypoperfusion from shock Dx: -Admission LA 3.0 #Non-anion gap metabolic acidosis pH 7.32, pCO2 45, likely caused in part by mild lactic acidosis HEME #Leukocytosis Admission WBC 15.5 #Thrombocytopenia Admission platelet count 144 ENDO #Insulin-dependent diabetes mellitus Dx: -11/07/24 hemoglobin A1c = 7.0 Rx: -Insulin sliding scale #Hypothyroidism Dx: -11/28/24 TSH = 3.50 Rx: -Continue home medication: PO Synthroid 25 mcg ACBR ID #Pneumonia Dx: -CXR showed bilateral pneumonia Rx: -IV vancomycin dosed by pharmacy x 1 (to cover for MRSA) -Follow up on MRSA nares, discontinue vancomycin if negative #UTI Dx: -UA suggestive of UTI -UCx pending Rx: -On IV Zosyn 2.25 gm q8HR [11/27--] based on previous urine culture results (11/08/24 UCx grew Klebsiella oxytoca sensitive to Zosyn) -Follow up on urine culture Disposition: Admitted to ICU DVT prophylaxis: SubQ Heparin 5000 q8HR GI prophylaxis: None Diet: Cardiac Ritter: Present Lines: Peripheral IV, Central IV Antibiotics: IV Zosyn 2.25 gm q8HR [11/27--] CODE STATUS: DNR Patient plan of care was discussed with the attending paper inspector, Dr. Norton. Tyrone Friend, DO Internal Medicine, PGY-1
[2024-11-27] MEDS: BUMETANIDE INJ 0.25 MG/ML VIAL 4 ML 2 MG IVP (19:16)
[2024-11-27] MEDS: Vancomycin Inj 1,000 MG in SODIUM CHLORIDE 0.9% 250 ML 250 ML 120 MG IV (22:00)
[2024-11-27] MEDS: PIPER/TAZO 3.375 GM PREMIX 3.375 GM/50 ML BAG IV (22:38)
[2024-11-27] MEDS: HEPARIN SOD INJ 5000 UNIT/ML VIAL SC (22:38)
[2024-11-27 22:51] LABS: Troponin I 0.439 ng/mL (0.0-0.045)
[2024-11-28] VITALS (100 sets, daily range): BP systolic 72–138; BP diastolic 43–86; PULSE 79–113; RESP 15–41; TEMP 36.8–36.9; O2SAT 88–98; BMI 24.7
[2024-11-28] MEDS: HYDROcodone/APAP 5/325 TABLET 1 TAB PO ×2 (01:19→19:26)
[2024-11-28] MEDS: HYDROmorphone INJ 2 MG/ML VIAL 0.5 MG IVP ×4 (02:31→21:47)
[2024-11-28 05:52] LABS: Basophils # (Auto) 0.0 Thou/mm3 (0.0-0.2); Basophils % (Auto) 0 % (0-2.5); Eosinophils # (Auto) 0.0 Thou/mm3 (0.0-0.5); Eosinophils % (Auto) 0 % (0-10); Hematocrit 39.8 % (41.0-53.0); Hemoglobin 13.0 g/dL (13.5-16.0); Immature Granulocytes Auto 0.17 Thou/mm3 (0.00-0.00); Lymphocytes # (Auto) 0.4 Thou/mm3 (1.0-4.8); Lymphocytes % (Auto) 3 % (10-50); Mean Corpuscular HGB Conc 32.7 g/dl (31.0-37.0); Mean Corpuscular Hemoglobin 31.6 pg (25.0-35.0); Mean Corpuscular Volume 97 fL (80-100); Monocytes # (Auto) 0.8 Thou/mm3 (0.0-0.8); Monocytes % (Auto) 5 % (0-12); Neutrophils # (Auto) 14.1 Thou/mm3 (1.8-7.7); Neutrophils % (Auto) 91 % (37-80); Nucleated Red Blood Cell # 0.02 Thou/mm3 (0.00-0.00); Nucleated Red Blood Cell % 0 /100 WBC (0); Platelet Count 206 Thou/mm3 (140-440); RDW Standard Deviation 66.9 fL (35.1-43.9); Red Blood Count 4.12 Miln/mm3 (4.50-5.90); White Blood Count 15.6 Thou/mm3 (3.8-10.6)
[2024-11-28 06:18] LABS: Alanine Aminotransferase 20 U/L (10-49); Albumin, Serum 3.4 gm/dL (3.4-4.8); Albumin/Globulin Ratio 1.3 (1.2-2.2); Alkaline Phosphatase 156 U/L (46-116); Anion Gap 11 (7-16); Aspartate Amino Transferase 45 U/L (0-34); BUN/Creatinine Ratio 11 Ratio (12-20); Bilirubin,Total 0.4 mg/dL (0.3-1.2); Blood Urea Nitrogen 39 mg/dL (9-23); Calcium 8.5 mg/dL (8.3-10.6); Calcium (Corrected) 9.0 mg/dL (8.5-10.1); Carbon Dioxide 22.1 mMol/L (20.0-31.0); Chloride 104 mMol/L (98-107); Creatinine (Component) 3.4 mg/dL (0.6-1.3); Estimated Creatinine Clearance 19.5 mL/min (>60); Free T4 (Free Thyroxine) 0.95 ng/dL (0.89-1.76); Globulin 2.6 gm/dL (2.3-3.5); Glucose 82 mg/dL (74-106); Magnesium 2.0 mg/dL (1.6-2.6); Osmolality,Calculated 282 (275-295); Phosphorous 5.2 mg/dL (2.4-5.1); Sodium 137 mMol/L (136-145); Thyroid Stimulating Hormone 3.50 uIU/mL (0.55-4.78); Total Protein 6.0 gm/dL (5.7-8.2); eGFR 17 See Note
[2024-11-28 06:21] LABS: Potassium 5.6 mMol/L (3.4-5.1)
[2024-11-28 06:22] LABS: Troponin I 0.437 ng/mL (0.0-0.045)
[2024-11-28] MEDS: HEPARIN SOD INJ 5000 UNIT/ML VIAL SC ×3 (06:22→21:44)
[2024-11-28] MEDS: LEVOTHYROXINE SODIUM 25 MCG TABLET PO (06:22)
[2024-11-28 07:51] LABS: Vancomycin,Random 10.2 mcg/mL
[2024-11-28 08:36] LABS: Influenza A Ag Negative; Influenza B Ag Negative
[2024-11-28] MEDS: PIPER/TAZO 3.375 GM PREMIX 3.375 GM/50 ML BAG IV ×2 (08:39→21:43)
--- NOTE | 2024-11-28 09:48 | XR_ITS ---
Examination: CT chest, without intravenous contrast. Sagittal and coronal 2-D reconstructions. Exam date and time: November 28, 2024, 1124 hours INDICATIONS: Hypoxia, chest and abdominal pain this week CTDI:vol (mGy) 33 DLP: (mGycm) 803 Technique: Multiple 3.0 mm axial sections of the chest to been obtained. Bone and lung density settings are obtained. Sagittal and coronal 2-D reconstructions have been obtained. Low dose protocols were performed. One or more of the following dose reduction techniques were used; automated exposure control, adjustment of the mA and/or KV according to patient size, use of iterative reconstruction technique. Findings: Thoracic aortic calcification no aneurysmal dilatation Main pulmonary artery segment is enlarged, 42 mm Heavy calcification left main left anterior descending left circumflex right coronary arteries Moderate enlargement cardiac contour Prominent vascular congestion Severe bilateral pulmonary fibrosis with superimposed pneumonia at the lung bases No visualized liver or splenic lesion No definite gallstones Atrophic left kidney no hydronephrosis Kyphosis dorsal spine with prominent osteopenia IMPRESSION: Severe pulmonary fibrosis Superimposed pneumonia at the lung bases
[2024-11-28] MEDS: VANCOMYCIN/NS 500 MG IVPB 100 ML 120 MG IV (10:35)
--- NOTE | 2024-11-28 11:21 | PC.SS ---
Update: Patient to obtain Chest CT today. Cardiology consulting, Dr. Strauss.
--- NOTE | 2024-11-28 11:24 | PC.SS ---
Attempted phone contact with patient's spouse, no response. Message left to return phone call.
--- NOTE | 2024-11-28 12:14 | ESPR_ITS ---
Documentation for date of: 11/28/24 Subjective Subjective Interval history: This is an 84-year-old male who presented to the ER yesterday for shortness of breath. He has a history of chronic respiratory failure and is in oxygen at home at 4 L. He was desatting to the low 80s on arrival. He has a history of heart failure and pulmonary fibrosis. And route he was given 500 cc of fluid by EMS. In the ER he was started on Levophed for hypotension. He was admitted to the ICU for vasopressor requirements. This morning the patient appears uncomfortable and is constantly groaning. When asked what is wrong he does not really answer but does indicate that he feels short of breath. Complains of pain however does not appear to localize. Yesterday he was given Bumex on admission to the ICU. He has had minimal urinary output. His urine in his Ritter catheter appears cloudy and turbulent. He is noted to have frequent UTIs and straight caths at home. Critical Care Note Critical care time (min.): 45 Exam Vital Signs Temp Pulse Resp BP Pulse Ox O2 Del Method O2 Flow Rate 97.8 F 86 22 H 109/60 94 L Oxy Mask 5 11/27/24 18:02 11/28/24 09:30 11/28/24 09:30 11/28/24 09:30 11/28/24 09:30 11/27/24 20:10 11/28/24 07:34 Narrative Exam General-elderly, chronically ill-appearing, thin, awake HEENT-normocephalic, atraumatic, sclera icteric, oral mucosa is hydrated Chest-crackles at bases, poor inspiratory effort, slightly tachypneic, no use of accessory muscles, heart rate regular rhythmic, murmur Abdomen-soft, nontender, bowel sounds present, no rebound or guarding Extremities-edema bilateral lower extremities, right greater than left, pulses palpable, moves all 4 extremities, no mottling, no clubbing Drips Levophed Bedside echo performed. Unable to obtain a good subcostal view and windows are somewhat limited. Parasternal long and parasternal short reveal a dilated right ventricle with what appears to be impingement on the left ventricle. The left ventricle appears with reduced contractility and a decreased EF. Mitral valve appears severely calcified with minimal movement, left atrium appears dilated, right appears larger than left. There appears to be hypokinesis of the septum. Unable to visualize the IVC due to bowel gas. 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 11/28/24 05:25 11/28/24 07:00 Labs: Laboratory Results - last 24 hr 11/27/24 11/27/24 11/27/24 16:35 17:00 17:35 WBC 15.5 H RBC 4.05 L Hgb 12.6 L Hct 39.7 L MCV 98 MCH 31.1 MCHC 31.7 RDW Std Deviation 66.8 H Plt Count 144 Neut % (Auto) 90 H Lymph % (Auto) 3 L Winston % (Auto) 5 Eos % (Auto) 0 Baso % (Auto) 0 Neut # (Auto) 13.9 H Lymph # (Auto) 0.5 L Winston # (Auto) 0.8 Eos # (Auto) 0.0 Baso # (Auto) 0.0 Immature Gran # (Auto) 0.18 H Absolute Nucleated RBC 0.00 Immature Gran % 1 H Nucleated RBC % 0 Puncture Site ABG pH ABG pCO2 ABG pO2 ABG HCO3 ABG O2 Saturation ABG Base Excess Oxygen Liter Flow Sodium 139 Potassium 5.3 H Chloride 105 Carbon Dioxide 23.3 Anion Gap 11 BUN 40 H Creatinine 3.4 H Estim Creat Clear Calc 19.5 L eGFR 17 L BUN/Creatinine Ratio 12 Glucose 136 H Calculated Osmolality 289 Lactic Acid 3.0 H Calcium 8.6 Corrected Calcium 9.3 Phosphorus Magnesium Total Bilirubin 0.4 AST 23 ALT 14 Alkaline Phosphatase 154 H Troponin I 0.486 H* B-Natriuretic Peptide 1845 H* Total Protein 5.5 L Albumin 3.1 L Globulin 2.4 Albumin/Globulin Ratio 1.3 Procalcitonin 4.62 H TSH Free T4 Ur Collection Type Clean Catch Urine Color Yellow Urine Clarity Turbid A Urine pH 6.0 Ur Specific [place] 1.028 Urine Protein 2+ A Urine Glucose (UA) Negative Urine Ketones Negative Urine Blood 2+ A Urine Nitrite Negative Urine Bilirubin Negative Urine Urobilinogen (Auto) Negative Ur Leukocyte Esterase Positive Urine RBC 20 H Urine WBC 2356 H Ur Squamous Epith Cells 14 H Ur Transition Epith Cell 1 Urine Bacteria 3+ A Random Vancomycin Influenza A (Rapid) Influenza B (Rapid) 11/27/24 11/27/24 11/28/24 18:22 22:00 05:25 WBC 15.6 H RBC 4.12 L Hgb 13.0 L Hct 39.8 L MCV 97 MCH 31.6 MCHC 32.7 RDW Std Deviation 66.9 H Plt Count 206 D Neut % (Auto) 91 H Lymph % (Auto) 3 L Winston % (Auto) 5 Eos % (Auto) 0 Baso % (Auto) 0 Neut # (Auto) 14.1 H Lymph # (Auto) 0.4 L Winston # (Auto) 0.8 Eos # (Auto) 0.0 Baso # (Auto) 0.0 Immature Gran # (Auto) 0.17 H Absolute Nucleated RBC 0.02 H Immature Gran % 1 H Nucleated RBC % 0 Puncture Site Right Radial ABG pH 7.32 L ABG pCO2 45 ABG pO2 87 ABG HCO3 23 ABG O2 Saturation 97 ABG Base Excess -3 Oxygen Liter Flow 6 Sodium Potassium Chloride Carbon Dioxide Anion Gap BUN Creatinine Estim Creat Clear Calc eGFR BUN/Creatinine Ratio Glucose Calculated Osmolality Lactic Acid Calcium Corrected Calcium Phosphorus Magnesium Total Bilirubin AST ALT Alkaline Phosphatase Troponin I 0.439 H* B-Natriuretic Peptide Total Protein Albumin Globulin Albumin/Globulin Ratio Procalcitonin TSH Free T4 Ur Collection Type Urine Color Urine Clarity Urine pH Ur Specific [place] Urine Protein Urine Glucose (UA) Urine Ketones Urine Blood Urine Nitrite Urine Bilirubin Urine Urobilinogen (Auto) Ur Leukocyte Esterase Urine RBC Urine WBC Ur Squamous Epith Cells Ur Transition Epith Cell Urine Bacteria Random Vancomycin Influenza A (Rapid) Influenza B (Rapid) 11/28/24 11/28/24 07:00 07:42 WBC RBC Hgb Hct MCV MCH MCHC RDW Std Deviation Plt Count Neut % (Auto) Lymph % (Auto) [place] % (Auto) Eos % (Auto) Baso % (Auto) Neut # (Auto) Lymph # (Auto) [place] # (Auto) Eos # (Auto) Baso # (Auto) Immature Gran # (Auto) Absolute Nucleated RBC Immature Gran % Nucleated RBC % Puncture Site ABG pH ABG pCO2 ABG pO2 ABG HCO3 ABG O2 Saturation ABG Base Excess Oxygen Liter Flow Sodium 137 Potassium 5.6 H Chloride 104 Carbon Dioxide 22.1 Anion Gap 11 BUN 39 H Creatinine 3.4 H Estim Creat Clear Calc 19.5 L eGFR 17 L BUN/Creatinine Ratio 11 L Glucose 82 D Calculated Osmolality 282 Lactic Acid Calcium 8.5 Corrected Calcium 9.0 Phosphorus 5.2 H Magnesium 2.0 Total Bilirubin 0.4 AST 45 H ALT 20 Alkaline Phosphatase 156 H Troponin I 0.437 H* B-Natriuretic Peptide Total Protein 6.0 Albumin 3.4 Globulin 2.6 Albumin/Globulin Ratio 1.3 Procalcitonin TSH 3.50 Free T4 0.95 Ur Collection Type Urine Color Urine Clarity Urine pH Ur Specific [place] Urine Protein Urine Glucose (UA) Urine Ketones Urine Blood Urine Nitrite Urine Bilirubin Urine Urobilinogen (Auto) Ur Leukocyte Esterase Urine RBC Urine WBC Ur Squamous Epith Cells Ur Transition Epith Cell Urine Bacteria Random Vancomycin 10.2 Influenza A (Rapid) Negative Influenza B (Rapid) Negative Assessment & Plan Additional Plan Additional Plan: In brief this is an 84-year-old male admitted to the ICU for vasopressor requirements a/p [employer] stable CV Shock-a cheetah was placed to obtain additional hemodynamics. Systemic vascular assistance was calculated to be in the low 800s with a normal stroke- volume and a low normal cardiac index. On arrival there was a feeling that the patient had cardiogenic shock and therefore he was given diuretics. At this point in time however he appears to be more vasodilated, there is no evidence of obstructive etiology. Currently not felt to fit a cardiogenic picture though undoubtedly his heart failure contributes to his overall presentation. It is possible the crackles heard in exam are secondary to his pulmonary fibrosis rather than pulmonary edema. He does have a UTI and picture of sepsis though he is currently afebrile. Will obtain a formal echo and perform a passive leg raise to evaluate fluid status.Cont abx and fu on cx - Bcx shows GNR HFrEF- appears to have severely dilated RV with intraventricular dependance and impingement on LV with volume/pressure overload. Mitral valve appears very tight, CO will depend on filling time Resp Acute/chronic resp failure- on 4lts at baseline at home, maintain sats >88% Pulmonary Fibrosis- fu with CT to eval for progression, pt does not appear to be on any meds, give steroids for ? of acute flare CAP- elevated procal, on abx, fu on cx Pulmonary HTN- noted to be at least 80mmHg - followed by cards Renal HyperK- give kayexolate and repeat CASSANDRA- sepsis v cardiorenal, of note pts creatinine was 1.3 at the beginning of the month - pt also has a h/o BPH with fq straight cath therefore poss obstructive etiology as well - check renal US and urine lytes - given bumex with minimal UOP GI NPO pending swallow eval Endo Hypothyroid- cont levothryoxine Heme Leukocytosis- 2/2 UTI and ? PNA DVT proph- heparin ID UTI- fq Klebsiella infections with resistant organism however sensitive to zosyn CAP- on abx case d/w ICU team labs, imaging, records reviewed ~45ccmin required for eval, exam, review, intervention, discussion and formulation of POC for this critically ill pt with shock on vasopressors Provider Notation Provider Notation: Although this document has been carefully reviewed, there may still be some phonetic and other typographical errors. These errors are purely grammatical due to imperfections in the software program and should not be construed in any way to compromise the substance of the patient's medical care during this visit. Thank you for the opportunity and privilege in assisting you with this patient's care and management.
--- NOTE | 2024-11-28 12:15 | ESPR_ITS ---
<Statement entered by Mohamud Crooks MD - 11/28/24 17:38> I saw and examined patient personally and supervised PGY 1 resident, Dr. Friend with formulating a management plan. I agree with the documentation with the exceptions as listed below. 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 Problem list: 1. Shock?likely septic secondary to UTI 2. Troponinemia?NSTEMI type I versus type II 3. Chronic systolic congestive heart failure [last EF 45% from 2023] 4. UTI?previously had multiple urine cultures showing MDR organisms 5. GNR Bacteremia 6. CAP 7. Acute on chronic respiratory failure with hypoxia secondary to pulmonary fibrosis and severe pulmonary hypertension 8. Acute kidney injury prerenal versus renal - resolved 9. Leukocytosis 10. IDDM type II 11. Hypothyroidism Patient presented with worsening shortness of breath and was found to have a blood pressure of 75/50 on arrival with a MAP of 58 this was after he received 500 cc normal saline IVF bolus on the ambulance en route. The decision to start norepinephrine was made by the ED physician. On our assessment, patient had grossly elevated JVD, chest wall retractions, mouth breathing, scattered coarse crackles throughout all lung [place], scrotal edema and bilateral lower limb edema up to the hips, worse on the right. Bedside echo also showed a dilated, none collapsible IVC and severely reduced EF. No signs of cardiac tamponade or tension pneumothorax. Patient's initial urinalysis was also positive for leukocyte esterase and 2356 WBCs. He also has a recurrent history of UTIs over the years mostly with MDR organisms. At the time of admission the working diagnosis for his shock was cardiogenic in nature with a possible concomitant distributive component. The decision was made to attempt diuresis with Bumex 2 Mg IV x 1 and obtain a NICOM monitor to assess cardiac index, SVI and TPRI to further classify the etiology of shock. NICOM monitoring did show a reduced SVI, TPRI and CI which was more in keeping with a distributive etiology. Patient also was minimally responsive to diuresis with only producing 30 cc/h of urine overnight. We will treat the underlying etiology of his septic shock with renally dosed Zosyn 3.375 g IV Q12 hourly started on [11/27? Patient has baseline chronic systolic congestive heart failure estimated EF 45% from previous echo on file. Also of note is that patient's has severe pulmonary fibrosis as seen on previous CT chest scans dating as far back as 2018. From his previous echocardiogram April 2023 patient also had severe pulmonary hypertension with RVSP 63 mmHg and RAP 15. This also exacerbated patient's shortness of breath. His checks x-ray on this admission was also suspicious for possible bibasilar pneumonia. At baseline his states that he uses 5L home oxygen as needed which has been almost [id number] for the past week since this recent episode. He has severe shortness of breath at rest and exacerbated by even minimal movement such as transferring from the bed to his commode. It is also a possibility he may be having a pulmonary fibrosis flare. We will order a CT chest noncontrast and place as needed Precedex for agitation to decrease motion artifact during procedure. Today patient was started on prednisone 60 mg p.o. daily for pulmonary fibrosis flare. If patient is unresponsive we will consider offering the family the option of comfort measures. Plan of care discussed with Attending Dr. Errol Crooks MD PGY 2 Disclaimer: This note was dictated by speech recognition. Minor errors in fur coat sewer may be present due to voice recognition software. 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 According to patient's , he has been getting progressively worsening fatigue, malaise, and shortness of breath over the past 2 weeks. At baseline, he uses 5 L O2 (began using 3 L O2 in April 2021) and experiences shortness of breath on minimal exertion such as transferring from the bed to the commode. However, over the past week, he has been getting shortness of breath even at rest. At baseline, he has a 45 degree orthopnea and for the past week has been experiencing episodes of PND as well. His legs are normally swollen at baseline but have not worsened over the past week. He reports compliance with his medication and denies eating any salty food recently. However, patient's endorses that he constantly drinks more than 50 ounces of iced water per day along with 7-Up. He endorses burning and pain with urination but denies any complaints of chest pain/pressure or palpitations as well as any nausea/vomiting, fevers, sick contacts or recent travel. Patient's says that he has not left the house in 1-1/2 years and only interacts with her. Past surgical history: CABG 2001, prostate radiation 2001, vasectomy 1984, open heart main artery valve repair 2013, butt implant stimulation system 2013 (doesn't work now) Social history: Patient previously worked at a [employer] prior to [employer]. He dropped out of high school in grade 10 and has been to his for the past 60 years but they have no children. Previously was a heavy drinker but quit about 40 years ago. Denies smoking history but has extensive secondhand smoke exposure from his friends and family. Denies any illicit drug use. Patient's Code Status is DNR/DNI. Medications: PO Bumex 2 mg qAM, PO Synthroid 0.025 mcg qAM, PO Entresto 24-26 BID, PO ferrous sulfate 325 BID, PO omeprazole 20 mg BID, PO aspirin 162 mg BID, PO nitrofurantoin 50 mg qHS, PO spironolactone 25 mg qHS, PO tadalafil 20 mg qHS, PO atorvastatin 20 mg qHS, Lantus Solostar Pen 3 mL 20 U qHS, PO Holgate 5- 325 prn, PO phenazopyridine 100 mg prn In the ED, vitals showed: BP 75/50 HR 102 RR 21 Temp 97.6 SpO2 98% on 15 L Oxygen Mask ED Course: CBC showed WBC 15.5, hemoglobin 12.6 (MCV 98, RDW 66.8), and platelet count 144. ABG of right radial artery showed pH 7.32, pCO2 45, pO2 87, and HCO3 23.3. CMP showed potassium 5.3, BUN 40, creatinine 3.4 (baseline of 1.0 from 04/21/24), eGFR 17, lactic acid 3.0, alkaline phosphatase 154, troponin I 0.486, BNP 1845, albumin 3.1, and procalcitonin 4.62. UA showed turbid, yellow urine with 2+ protein, 2+ blood, positive leukocyte esterase, U RBC 20, U WBC 2356, U squamous epithelial cells 14, and 3+ bacteria. Imagin11/27/24 CXR showed prominent congestive heart failure with enlarged cardiac contour, ectatic enlarged thoracic aorta, prominent vascular congestion with perihilar edema, and satisfactory positioning of pacemaker. It also showed findings that were suspicious for significant bilateral pneumonia. In the ED, patient was started on IV Levophed 0.05 and given IV ceftriaxone 1 gm x 1, IV azithromycin 500 mg x 1, IV fentanyl 50 mcg x 1, and IV Bumex 2 mg x 1. Patient was admitted for the work-up and management of undifferentiated shock requiring pressors in the setting of likely CHF exacerbation, CASSANDRA, lactic acidosis, possible pneumonia, and UTI. Cardiology has been consulted. Interval History 11/28/24: Overnight, patient was given Holgate x 1 and Dilaudid x 1 for apparent chronic pain. His urine output after being given IV Bumex 2 mg x 1 last night @ 7:16 PM has been about 15-30 cc/hr of thick, purulent urine. Patient was examined at bedside; he appears much the same as he did upon admission. Bedside echocardiogram seems to show improved heart contractility and EF. It also showed dilated RA and RV as well as barely mobile mitral valve (in the setting of confirmed severe pulmonary hypertension, RVSP 63 and RAP 15 in April 2023). NICOM w/ PLR indicated that patient was not fluid responsive and that his shock was likely distributive in etiology rather than cardiogenic from CHF exacerbation as previously suspected; thus, patient's shock is likely 2/2 a septic vasodilatory response in the setting of definite UTI, GNR bacteremia, and possible pneumonia. Current plan is to start him on a 1-dcm-fsftrn of PO prednisone 60 mg qD for possible flare of pulmonary fibrosis and have a chest CT without contrast taken while he is on Precedex to make him move less for a better picture to assess his ongoing respiratory issues. If patient is unresponsive we will consider offering the family the option of comfort measures as Cardiology believes his current heart function is too poor to be salvaged. Exam Vital Signs Temp Pulse Resp BP Pulse Ox O2 Del Method O2 Flow Rate 97.8 F 86 22 H 109/60 94 L Oxy Mask 5 11/27/24 18:02 11/28/24 09:30 11/28/24 09:30 11/28/24 09:30 11/28/24 09:30 11/27/24 20:10 11/28/24 07:34 Narrative Exam General: A/O x3 elderly male in some distress. Skin: Overall dry but intact and without obvious rash. Head: Normocephalic, atraumatic. Eyes: PERRL, EOMI. Anicteric, vision grossly intact. Ears: No ear pain, no ear discharge, Hearing grossly intact. Extra skin growth originating from tragus noted on left ear. Nose: No nasal discharge. Mouth/Throat: Black stains around mouth ( says its from cough drops he likes to use to keep his mouth moist). Oral mucosa moist.. No obvious lesions in oropharynx. Dentition in fairly good shape. Cardiovascular: Regular rate and regular rhythm, 2 cm JVD, no murmur, or carotid bruits. +S1/S2. Vertical cicatrix over sternum. Bedside echocardiogram seemed to show better EF today and dilated chambers. Respiratory: Diffuse crackles of posterior lung [place] bilaterally, particularly at the bases, respirations seem somewhat labored, expiratory groaning, no wheezing. No accessory muscle use. Gastrointestinal: Generalized tenderness to palpation of lower quadrants of the abdomen, especially suprapubic region. Soft, non-distended, no palpable masses. No guarding or rebound tenderness. Normoactive bowel sounds present. Genitourinary: Diffusely swollen scrotum without palpable masses, circumcised penis with Ritter catheter in place draining urine with yellow-tinged pus noted in the tubing. Extremities: Severe dryness of bilateral lower extremities with flaking and scaling that is worse on the left. Yellow discoloration and thickening of toenails, particularly at the halluces bilaterally. Area of blackening noted under right hallux toenail. Top half of left hallux toenail broken off. Mild duskiness of plantar surface of right hallux and more pronounced duskiness of left hallux and left second toe. Bilateral fingernails untrimmed with subungual discoloration and debris. 4+ pitting edema of right foot up to hips and 1+ pitting edema of left foot up to hips. 1+ radial pulse bilaterally. Neuro: No focal deficits observed. Conversant, moving all extremities. No overt cerebellar signs/incoordination. Psychiatric: Cooperative, appropriate affect. Objective Labs 11/28/24 05:25 11/28/24 07:00 Labs: Laboratory Results - last 24 hr 11/27/24 11/27/24 11/27/24 16:35 17:00 17:35 WBC 15.5 H RBC 4.05 L Hgb 12.6 L Hct 39.7 L MCV 98 MCH 31.1 MCHC 31.7 RDW Std Deviation 66.8 H Plt Count 144 Neut % (Auto) 90 H Lymph % (Auto) 3 L [place] % (Auto) 5 Eos % (Auto) 0 Baso % (Auto) 0 Neut # (Auto) 13.9 H Lymph # (Auto) 0.5 L [place] # (Auto) 0.8 Eos # (Auto) 0.0 Baso # (Auto) 0.0 Immature Gran # (Auto) 0.18 H Absolute Nucleated RBC 0.00 Immature Gran % 1 H Nucleated RBC % 0 Puncture Site ABG pH ABG pCO2 ABG pO2 ABG HCO3 ABG O2 Saturation ABG Base Excess Oxygen Liter Flow Sodium 139 Potassium 5.3 H Chloride 105 Carbon Dioxide 23.3 Anion Gap 11 BUN 40 H Creatinine 3.4 H Estim Creat Clear Calc 19.5 L eGFR 17 L BUN/Creatinine Ratio 12 Glucose 136 H Calculated Osmolality 289 Lactic Acid 3.0 H Calcium 8.6 Corrected Calcium 9.3 Phosphorus Magnesium Total Bilirubin 0.4 AST 23 ALT 14 Alkaline Phosphatase 154 H Troponin I 0.486 H* B-Natriuretic Peptide 1845 H* Total Protein 5.5 L Albumin 3.1 L Globulin 2.4 Albumin/Globulin Ratio 1.3 Procalcitonin 4.62 H TSH Free T4 Ur Collection Type Clean Catch Urine Color Yellow Urine Clarity Turbid A Urine pH 6.0 Ur Specific [place] 1.028 Urine Protein 2+ A Urine Glucose (UA) Negative Urine Ketones Negative Urine Blood 2+ A Urine Nitrite Negative Urine Bilirubin Negative Urine Urobilinogen (Auto) Negative Ur Leukocyte Esterase Positive Urine RBC 20 H Urine WBC 2356 H Ur Squamous Epith Cells 14 H Ur Transition Epith Cell 1 Urine Bacteria 3+ A Random Vancomycin Influenza A (Rapid) Influenza B (Rapid) 11/27/24 11/27/24 11/28/24 18:22 22:00 05:25 WBC 15.6 H RBC 4.12 L Hgb 13.0 L Hct 39.8 L MCV 97 MCH 31.6 MCHC 32.7 RDW Std Deviation 66.9 H Plt Count 206 D Neut % (Auto) 91 H Lymph % (Auto) 3 L [place] % (Auto) 5 Eos % (Auto) 0 Baso % (Auto) 0 Neut # (Auto) 14.1 H Lymph # (Auto) 0.4 L [place] # (Auto) 0.8 Eos # (Auto) 0.0 Baso # (Auto) 0.0 Immature Gran # (Auto) 0.17 H Absolute Nucleated RBC 0.02 H Immature Gran % 1 H Nucleated RBC % 0 Puncture Site Right Radial ABG pH 7.32 L ABG pCO2 45 ABG pO2 87 ABG HCO3 23 ABG O2 Saturation 97 ABG Base Excess -3 Oxygen Liter Flow 6 Sodium Potassium Chloride Carbon Dioxide Anion Gap BUN Creatinine Estim Creat Clear Calc eGFR BUN/Creatinine Ratio Glucose Calculated Osmolality Lactic Acid Calcium Corrected Calcium Phosphorus Magnesium Total Bilirubin AST ALT Alkaline Phosphatase Troponin I 0.439 H* B-Natriuretic Peptide Total Protein Albumin Globulin Albumin/Globulin Ratio Procalcitonin TSH Free T4 Ur Collection Type Urine Color Urine Clarity Urine pH Ur Specific [place] Urine Protein Urine Glucose (UA) Urine Ketones Urine Blood Urine Nitrite Urine Bilirubin Urine Urobilinogen (Auto) Ur Leukocyte Esterase Urine RBC Urine WBC Ur Squamous Epith Cells Ur Transition Epith Cell Urine Bacteria Random Vancomycin Influenza A (Rapid) Influenza B (Rapid) 11/28/24 11/28/24 07:00 07:42 WBC RBC Hgb Hct MCV MCH MCHC RDW Std Deviation Plt Count Neut % (Auto) Lymph % (Auto) [place] % (Auto) Eos % (Auto) Baso % (Auto) Neut # (Auto) Lymph # (Auto) [place] # (Auto) Eos # (Auto) Baso # (Auto) Immature Gran # (Auto) Absolute Nucleated RBC Immature Gran % Nucleated RBC % Puncture Site ABG pH ABG pCO2 ABG pO2 ABG HCO3 ABG O2 Saturation ABG Base Excess Oxygen Liter Flow Sodium 137 Potassium 5.6 H Chloride 104 Carbon Dioxide 22.1 Anion Gap 11 BUN 39 H Creatinine 3.4 H Estim Creat Clear Calc 19.5 L eGFR 17 L BUN/Creatinine Ratio 11 L Glucose 82 D Calculated Osmolality 282 Lactic Acid Calcium 8.5 Corrected Calcium 9.0 Phosphorus 5.2 H Magnesium 2.0 Total Bilirubin 0.4 AST 45 H ALT 20 Alkaline Phosphatase 156 H Troponin I 0.437 H* B-Natriuretic Peptide Total Protein 6.0 Albumin 3.4 Globulin 2.6 Albumin/Globulin Ratio 1.3 Procalcitonin TSH 3.50 Free T4 0.95 Ur Collection Type Urine Color Urine Clarity Urine pH Ur Specific [place] Urine Protein Urine Glucose (UA) Urine Ketones Urine Blood Urine Nitrite Urine Bilirubin Urine Urobilinogen (Auto) Ur Leukocyte Esterase Urine RBC Urine WBC Ur Squamous Epith Cells Ur Transition Epith Cell Urine Bacteria Random Vancomycin 10.2 Influenza A (Rapid) Negative Influenza B (Rapid) Negative ABG Interpretation ABG results: 11/27/24 18:22 ABG pH 7.32 L ABG pCO2 45 ABG pO2 87 ABG HCO3 23 ABG O2 Saturation 97 ABG Base Excess -3 Quality Measures Quality Measures none Advance care planning discussed with:: patient Assessment & Plan Assessment Current Active Medications: Generic Name Dose Route Start Last Admin Trade Name Freq PRN Reason Stop Dose Admin Acetaminophen 650 mg 11/27/24 18:55 Acetaminophen 325 Mg Tablet PO 12/27/24 18:54 Q6H PRN Fever >100 or pain 1-3 Hydrocodone Bitart/Acetaminophen 1 tab 11/27/24 19:04 11/28/24 01:19 Hydrocodone/Apap 5/325 Tablet PO 12/02/24 19:03 1 tab Q6HR PRN Administration PAIN SCALE 4-10(Mod-Sev Albuterol/Ipratropium 3 ml 11/27/24 18:55 Albuterol/Ipratropium (Duoneb) Rt Divine 3 Ml Nebu INH 12/27/24 18:54 Q2HR PRN SHORTNESS OF BREATH OR WHEEZE Dextrose 50 ml 11/27/24 19:04 Dextrose 50%-Water Inj 50 Ml Syringe IV 12/27/24 19:03 Q15MIN PRN BG <50 OR BG <70 & pt unresponsive Glucagon 1 mg 11/27/24 19:04 Glucagon Inj 1 Mg Vial IM Q15MIN PRN BG <70, and no IV access Heparin Sodium (Porcine) 5,000 unit 11/27/24 22:00 11/28/24 06:22 Heparin Sod Inj 5000 Unit/Ml Vial SC 12/11/24 21:59 5,000 unit Q8HR JOAN Administration Hydromorphone HCl 0.5 mg 11/27/24 19:09 11/28/24 08:57 Hydromorphone Inj 2 Mg/Ml Vial IVP 12/02/24 19:08 0.5 mg Q4HR PRN Administration BREAKTHROUGH PAIN Norepinephrine/Dextrose 8 mg in 250 mls @ 8.292 mls/hr 11/27/24 16:35 11/28/24 06:00 Levophed In D5w 8mg/250ml IV 12/27/24 16:34 0.05 mcg/kg/min .Q24H PRN 8.292 mls/hr PER PROTOCOL Titration Protocol 0.05 MCG/KG/MIN Piperacillin/Tazobactam/Dextrose 3.375 gm in 50 mls @ 12.5 mls/hr 11/27/24 22:00 11/28/24 08:39 Zosyn IV 11/29/24 08:59 12.5 mls/hr Q12HR JOAN Administration Dexmedetomidine/Sodium Chloride 400 mcg in 100 mls @ 4.38 mls/hr 11/28/24 09:58 Precedex Ivpb IV 12/28/24 09:57 .[id number] PRN Prior to CT chest for sedation Protocol 0.2 MCG/KG/HR Insulin Human Lispro 0 unit 11/27/24 21:00 11/28/24 08:33 Insulin Lispro (Admelog) 1 Unit/0.01 Ml Unit SC 12/27/24 20:59 Not Given ACHS JOAN Protocol Levothyroxine Sodium 25 mcg 11/28/24 06:00 11/28/24 06:22 Levothyroxine Sodium 25 Mcg Tablet PO 12/28/24 05:59 25 mcg ACBR JOAN Administration Ondansetron HCl 4 mg 11/27/24 18:55 Ondansetron Inj 2 Mg/Ml Inj 2 Ml IVP 12/27/24 18:54 Q6H PRN NAUSEA OR VOMITING Protocol Pharmacy Consult 1 each 11/27/24 19:46 Pharmacy Renal Dose Adjustment 1 Ea XX 12/27/24 19:45 PRN PRN CONSULT Pharmacy Consult 1 each 11/27/24 21:07 Vancomycin Pharmacy To Dose 1 Each Each IV 12/27/24 21:06 QDAY PRN CONSULT Prednisone 60 mg 11/28/24 10:00 11/28/24 10:33 Prednisone 20 Mg Tablet PO 12/02/24 09:48 60 mg QDAY JOAN Administration Plan Patient is an 84-year-old male with a PMH of CAD status post CABG 2001 and pacemaker implant in May 2023, hypothyroidism, prostate cancer status post radiation therapy in 2001 and hormonal treatments (uncertain of remission status, last visit to the oncologist was in 2019), 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 Patient was admitted for the work-up and management of undifferentiated shock requiring pressors in the setting of likely CHF exacerbation, CASSANDRA, lactic acidosis, possible pneumonia, and UTI. Cardiology has been consulted. Overnight, patient was given Holgate x 1 and Dilaudid x 1 for apparent chronic pain. His urine output after being given IV Bumex 2 mg x 1 last night @ 7:16 PM has been about 15-30 cc/hr of thick, purulent urine. Patient was examined at bedside; he appears much the same as he did upon admission. Bedside echocardiogram seems to show improved heart contractility and EF. It also showed dilated RA and RV as well as barely mobile mitral valve (in the setting of confirmed severe pulmonary hypertension, RVSP 63 and RAP 15 in April 2023). NICOM w/ PLR indicated that patient was not fluid responsive and that his shock was likely distributive in etiology rather than cardiogenic from CHF exacerbation as previously suspected; thus, patient's shock is likely 2/2 a septic vasodilatory response in the setting of definite UTI, GNR bacteremia, and possible pneumonia. Current plan is to start him on a 9-[id number]-[id number] of PO prednisone 60 mg qD for possible flare of pulmonary fibrosis and have a chest CT without contrast taken while he is on Precedex to make him move less for a better picture to assess his ongoing respiratory issues. If patient is unresponsive we will consider offering the family the option of comfort measures as Cardiology believes his current heart function is too poor to be salvaged. NEURO No active problems CARDIO #Shock, likely distributive 2/2 septic vasodilation 2/2 UTI and possible pneumonia Initially, upon 11/27 admission, patient's shock was suspected to be 2/2 cardiogenic etiology in the setting of CHF exacerbation for which he was given IV Bumex 2 mg x 1 (which did not help). However, 11/28 NICOM w/ PLR showed lower than expected SVR while on Levophed (as well as lack of fluid responsiveness), leading to the suspicion that patient's shock was distributive 2/2 septic shock in the setting of definite UTI, GNR bacteremia, and possible pneumonia (could also be pulmonary fibrosis flare) Dx: -11/27 BCx grew GNR -11/28 bedside echo showed improved EF and contractility from 11/27 echo upon admission -Last echocardiogram in 2023 showed reduced EF of 45% -11/27/24 CXR showed prominent congestive heart failure with enlarged cardiac contour, ectatic enlarged thoracic aorta, prominent vascular congestion with perihilar edema, and satisfactory positioning of pacemaker. -Pre-PLR NICOM showed SVR 881, CI 2.8, CO 6.0, SV 66.7. Post-PLR NICOM showed SVR 947, CI 2.9, CO 6.2, SV 71.0. (not fluid responsive, likely vasodilatory state from distributive shock) -Procalcitonin 4.62, supporting possible ongoing systemic inflammation, sepsis, or severe bacterial infection -BNP 1845 Rx: -IV Levophed to maintain MAP > 65 -Treat underlying infection as discussed in ID section #Type II NSTEMI (demand ischemia) Dx: -Admission troponin I 0.486, then flat trend Rx: -Maintain MAP > 65 as discussed above #CAD s/p CABG -Continue aspirin and statin #Acute decompensated chronic systolic and diastolic heart failure exacerbation [last EF 45% from 2023] Dx: -11/27/24 CXR showed prominent congestive heart failure with enlarged cardiac contour, ectatic enlarged thoracic aorta, prominent vascular congestion with perihilar edema, and satisfactory positioning of pacemaker. -11/28 bedside echo showed improved EF and contractility from 11/27 echo upon admission but also showed dilation of RA and RV as well as barely mobile mitral valve -Last echocardiogram in 2023 showed reduced EF of 45% -BNP 1844 Rx: -Fluid restriction -Strict I's & O's -Ordered echocardiogram -Cardiology consulted, recommended comfort care if no improvement in patient symptoms PULM #Pulmonary fibrosis (flare) from second-hand smoke exposure Dx: -Previous chest CTs show evidence of pulmonary fibrosis -Venous doppler ultrasound of BLE (-) Rx: -Repeat chest CT w/o contrast with patient on Precedex to prevent too much patient motion (to further evaluate patient's respiratory issues) -3-ywf-sqkzzj of PO prednisone 60 mg qD [11/28--] for pulmonary fibrosis flare -INH Duoneb 3 mL q2HR prn #Pulmonary hypertension -Stable GI #No active problems NEPHRO #CASSANDRA -Creatinine 3.4 -> 3.4 today (baseline of 1.0 from 04/21/24) -Treat underlying cause which is likely distributive shock 2/2 infection (with antibiotics and Levophed) #Lactic acidosis (resolved) Likely 2/2 tissue hypoperfusion from shock Dx: -Admission LA 3.0, now 1.8 on 11/28 #Non-anion gap metabolic acidosis pH 7.32, pCO2 45, likely caused in part by mild lactic acidosis HEME #Leukocytosis Admission WBC 15.5, today 15.6 ENDO #Insulin-dependent diabetes mellitus Dx: -11/07/24 hemoglobin A1c = 7.0 Rx: -Insulin sliding scale #Hypothyroidism Dx: -11/28/24 TSH = 3.50 Rx: -Continue home medication: PO Synthroid 25 mcg ACBR ID #[id number] Dx: -UA suggestive of UTI -UCx pending Rx: -On IV Zosyn 2.25 gm q8HR [11/27--] based on previous urine culture results (11/08/24 UCx grew Klebsiella oxytoca sensitive to Zosyn) -Follow up on urine culture #GNR bacteremia Dx: -11/27 BCx shows 2/2 growth of GNR Rx: -IV Zosyn 2.25 gm q8HR #??Pneumonia DDx: pulmonary fibrosis flare Dx: -CXR showed bilateral pneumonia but it is difficult to tell whether this is true pneumonia superimposed upon pulmonary fibrosis or flare of pulmonary fibrosis Rx: -IV vancomycin dosed by pharmacy [11/28--] (to cover for MRSA) -Follow up on MRSA nares, discontinue vancomycin if negative Disposition: Admitted to ICU DVT prophylaxis: SubQ Heparin 5000 q8HR GI prophylaxis: None Diet: NPO Ritter: Present Lines: Peripheral IV, Central IV Antibiotics: IV Zosyn 2.25 gm q8HR [11/27--] CODE STATUS: DNR Patient plan of care was discussed with the attending substation inspector, Dr. Norton. Tyrone Friend, DO Internal Medicine, PGY-1
[2024-11-28 12:46] LABS: Lactate (Lactic Acid) 1.8 mMol/L (0.4-2.0)
--- NOTE | 2024-11-28 13:14 | PC.SS ---
SIFTING OPERATOR conducted phone contact with the patient?s spouse, Princess Leyva to conduct initial assessment and to discuss discharge planning.? Patient is currently on the ICU.? Patient resides at home with spouse, Chris Colon .? Patient is retired.? Patient is bedbound.? Patient utilizes home oxygen.? Per spouse utilizes 5L.? Patient?s spouse assist the patient with completion of ADL?s.? Patient?s spouse, Princess Leyva; is the patient?s medical surrogate decision maker.? Patient?s PCP is Anisa Alonzo.? Patient?s photolettering machine operator is Dr. Strauss.? Patient?s urologist is Dr. Jones.? Patient does not participate with dialysis.? Patient utilizes [facility] for medication services.? Patient is diabetic, insulin dependent.? Plan is for the patient to return home at the time of discharge.? well services operator will assist with arranging transportation on behalf of the patient.? No further discharge needs identified by the patient.? No further intervention required at this time, licensed clinical social worker will be available to address any further concerns.? Next of Kin: Princess Leyva D/C Plan: Home
--- NOTE | 2024-11-28 13:16 | PC.SS ---
Patient aligned with [facility] home health in the past. If home health recommended preferred agency is [facility], per spouse.
--- NOTE | 2024-11-28 13:24 | PC.SS ---
FRONT DESK ATTENDANT conducted bedside contact with the patient conduct initial assessment and to discuss discharge planning.? At bedside with patient was son, Tony Krishnan .? Information obtained from the patient?s son.? Patient admitted for CVA.? Patient resides at home with son.? Patient does not utilize any form of DME to assist with ambulation.? Patient does not utilize home oxygen.? Prior to current admission patient able to complete ADL?s independently, to include operating vehicle.? Patient?s surrogate medical decision maker is son, Tony Krishnan.? Patient?s PCP is Dr. Fuentes.? Patient?s motion picture critic is Dr. Rizzo.? Patient does not participate with dialysis.? Plan is for the patient to transition to acute rehabilitation.? No preferred facility identified.? FRONT DESK ATTENDANT informed son that patient will need a PT evaluation and meet criteria for acute rehabilitation placement.? Patient acknowledged need for authorization and possession of criteria for placement. ?gate services supervisor will arrange transportation on behalf of the patient.? No further discharge needs identified by the patient?s son.? No further intervention required at this time, social science instructor will be available to address any further concerns.? Next of Kin: Tony Krishnan D/C Plan: Acute Rehab
--- NOTE | 2024-11-28 13:26 | XR_ITS ---
Examination: Retroperitoneal ultrasound, complete Technique: Multiple high resolution grayscale images of the retroperitoneum obtained, including kidneys and bladder. Exam date and time:November 28, 2024, 1341 hrs. Indications: Renal insufficiency, acute renal failure on laboratory examination today Findings: Right kidney 11.3 cm cortex 1.3 cm Left kidney 10.4 cm cortex 1.2 cm No hydronephrosis or renal calculi Mild to moderate renal scar formation Urinary Ritter catheter noted Small mass in the bladder 10 x 6 x 13 mm suspicious for calculus Contracted urinary bladder Prostate not enlarged, volume 14.6 cc no prostate nodules Impression: Bilateral renal cortical thinning Mild to moderate bilateral renal parenchymal scar formation No hydronephrosis Suspicious for small mass/calculus in the urinary bladder, 13 mm
[2024-11-28] MEDS: MethylPREDNISolone SOD SUCC 62.5 MG/ML 2ML VIAL 40 MG IVP ×2 (15:08→21:43)
--- NOTE | 2024-11-28 16:06 | ESCONSULT_ITS ---
<Statement entered by Jadon Linares MD - 11/29/24 18:32> I personally examined evaluated the patient is very well-known to me has a longstanding history of CAD status post bypass graft surgery SANCHEZ to LAD severe pulmonary hypertension right heart failure has progressive right heart failure she has fibrosis I reviewed the echocardiogram exertion that showed evidence of severe right ventricular enlargement severe pulmonary arterial hypertension PA pressure more than 80 mmHg severe RV dysfunction right heart failure with extreme anasarca. Patient not expected to survive appears to have cardiogenic shock secondary to obstructive element from severe pulmonary hypertension discussed with the family about comfort care which is appropriate patient not expected to survive. Evaluated patient with resident physician discussed with the family as well in ICU and we will make the patient comfort care at this point agree with the treatment plan recommendation as documented by PGY 2 Dr. Matteo Campbell. 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 Patient presented to the ED with worsening shortness of breath for the past 2 weeks possibly longer now progressed even at rest with orthopnea and PND. ED course: BP 75/50, HR 102 bpm, RR 21, saturating 98% on 15 L oxy mask. Labs show leukocytosis, potassium 5.3, creatinine 3.4, lactic acidosis, mild troponin elevation 0.86, BNP 1845 elevated procalcitonin. UA is positive for UTI. PMHx: As above SX Hx: CABG in 2001, vasectomy 1984, valve repair 2013 Social Hx: Denies smoking, denies illicit drug use, denies alcohol use Patient was admitted to the ICU for shock requiring vasopressors. Cardiology consulted for CHF exacerbation and elevated troponins. cc:: cc: Flor Norton MD Review of Systems Review of Systems Systems Reviewed: All systems reviewed, normal except as documented Exam Vital Signs Temp Pulse Resp BP Pulse Ox O2 Del Method O2 Flow Rate 98.5 F 94 19 99/61 94 L Oxy Mask 6 11/28/24 14:01 11/28/24 15:30 11/28/24 15:30 11/28/24 15:30 11/28/24 15:30 11/27/24 20:10 11/28/24 15:00 FiO2 92 11/28/24 14:01 Narrative Exam Physical Exam GENERAL: Acute distress, frail, thin HEENT: Moist mucosa. Eyes closed, positive JVD, positive hepatojugular reflux CARDIO: Heart RRR, no obvious murmurs PULM: No noted coughing but positive dyspnea, bilateral crackles with labored breathing GI: Abdomen soft, nondistended, no pain on palpation. BSx4 SKIN/MSK/EXT: Bilateral lower extremity swelling +3, no pain on palpation. Pedal pulses present B/L Results Labs 11/28/24 05:25 11/28/24 07:00 Labs: Short CBC 11/27/24 11/28/24 Range/Units 16:35 05:25 WBC 15.5 H 15.6 H (3.8-10.6) Thou/mm3 Hgb 12.6 L 13.0 L (13.5-16.0) g/dL Hct 39.7 L 39.8 L (41.0-53.0) % Plt Count 144 206 D (140-440) Thou/mm3 BMP 11/27/24 11/28/24 16:35 07:00 Sodium 139 137 Potassium 5.3 H 5.6 H Chloride 105 104 Carbon Dioxide 23.3 22.1 BUN 40 H 39 H Creatinine 3.4 H 3.4 H Glucose 136 H 82 D Calcium 8.6 8.5 Cardiac Enzymes 11/27/24 11/27/24 11/28/24 Range/Units 16:35 22:00 07:00 Troponin I 0.486 H* 0.439 H* 0.437 H* (0.0-0.045) ng/mL Liver Function 11/27/24 11/28/24 Range/Units 16:35 07:00 Total Bilirubin 0.4 0.4 (0.3-1.2) mg/dL AST 23 45 H (0-34) U/L ALT 14 20 (10-49) U/L Alkaline Phosphatase 154 H 156 H (46-116) U/L Albumin 3.1 L 3.4 (3.4-4.8) gm/dL Urine 11/27/24 Range/Units 17:00 Urine Color Yellow (Lt Yel-Yel) Urine Clarity Turbid A (Clear/Hazy) Urine pH 6.0 (5.0-7.0) Ur Specific [place] 1.028 (1.001-1.035) Urine Protein 2+ A (Neg - Trace) Urine Glucose (UA) Negative (Negative) ABG Interpretation ABG results: 11/27/24 18:22 ABG pH 7.32 L ABG pCO2 45 ABG pO2 87 ABG HCO3 23 ABG O2 Saturation 97 ABG Base Excess -3 Quality Measures Quality Measures none Advance care planning discussed with:: patient and spouse Medications Home Medications and Allergies Home Medications ?Medication ?Instructions ?Recorded ?Confirmed ?Type amlodipine 2.5 mg tablet 2.5 mg PO QDAY 05/14/2111/01 History omeprazole 20 mg capsule,delayed 20 mg PO BID 05/14/21 11/28/24 History release ferrous sulfate 325 mg (65 mg 325 mg PO QDAY 04/15/23 11/28/24 History iron) tablet insulin glargine 100 unit/mL (3 24 unit subcut HS 04/0211/28/24 History mL) subcutaneous pen (Lantus Solostar U-100 Insulin) atorvastatin 20 mg tablet 20 mg PO QDAY 11/28/2411/28 History hydrocodone 5 mg-acetaminophen 325 1 tab PO .[id number] 11/28/24 History mg tablet levothyroxine 100 mcg tablet 100 mcg PO QAM 11/28/24 0 11/28/24 History nitrofurantoin macrocrystal 50 mg 50 mg QDAY 11/28/24 History capsule sacubitril 24 mg-valsartan 26 mg 1 tab PO BID 11/28/24 11/28/24 History tablet (Entresto) spironolactone 25 mg tablet 12.5 mg PO QDAY 12.5 11/2811/28/24 History tadalafil 20 mg tablet 20 mg PO QDAY 11/28/2411/28 History Allergies Allergy/AdvReac Type Severity Reaction Status Date / Time No Known Allergies Allergy Verified 03/16/23 12:55 Visit Medications Acetaminophen (Acetaminophen 325 Mg Tablet) 650 mg PO Q6H PRN PRN Reason: Fever >100 or pain 1-3 Stop: 12/27/24 18:54 Hydrocodone Bitart/Acetaminophen (Hydrocodone/Apap 5/325 Tablet) 1 tab PO Q6HR PRN PRN Reason: PAIN SCALE 4-10(Mod-Sev Stop: 12/02/24 19:03 Last Admin: 11/28/24 01:19 Dose: 1 tab Albuterol/Ipratropium (Albuterol/Ipratropium (Duoneb) Rt Divine 3 Ml Nebu) 3 ml INH Q2HR PRN PRN Reason: SHORTNESS OF BREATH OR WHEEZE Stop: 12/27/24 18:54 Dextrose (Dextrose 50%-Water Inj 50 Ml Syringe) 50 ml IV Q15MIN PRN PRN Reason: BG <50 OR BG <70 & pt unresponsive Stop: 12/27/24 19:03 Glucagon (Glucagon Inj 1 Mg Vial) 1 mg IM Q15MIN PRN PRN Reason: BG <70, and no IV access Heparin Sodium (Porcine) (Heparin Sod Inj 5000 Unit/Ml Vial) 5,000 unit SC Q8HR JOAN Stop: 12/11/24 21:59 Last Admin: 11/28/24 15:10 Dose: 5,000 unit Hydromorphone HCl (Hydromorphone Inj 2 Mg/Ml Vial) 0.5 mg IVP Q4HR PRN; Protocol PRN Reason: BREAKTHROUGH PAIN Stop: 12/02/24 19:08 Last Admin: 11/28/24 15:19 Dose: 0.5 mg Norepinephrine/Dextrose (Levophed In D5w 8mg/250ml) 8 mg in 250 mls @ 8.292 mls/hr IV .Q24H PRN; Protocol PRN Reason: PER PROTOCOL Stop: 12/27/24 16:34 Last Titration: 11/28/24 15:30 Dose: 0.07 mcg/kg/min, 11.609 mls/hr Piperacillin/Tazobactam/Dextrose (Zosyn) 3.375 gm in 50 mls @ 12.5 mls/hr IV Q12HR JOAN Stop: 11/29/24 08:59 Last Admin: 11/28/24 08:39 Dose: 12.5 mls/hr Dexmedetomidine/Sodium Chloride (Precedex Ivpb) 400 mcg in 100 mls @ 4.38 mls/hr IV .[id number] PRN; Protocol PRN Reason: Prior to CT chest for sedation Stop: 12/28/24 09:57 Insulin Human Lispro (Insulin Lispro (Admelog) 1 Unit/0.01 Ml Unit) 0 unit SC ACHS JOAN; Protocol Stop: 12/27/24 20:59 Last Admin: 11/28/24 15:13 Dose: Not Given Levothyroxine Sodium (Levothyroxine Sodium 25 Mcg Tablet) 25 mcg PO ACBR JOAN Stop: 12/28/24 05:59 Last Admin: 11/28/24 06:22 Dose: 25 mcg Methylprednisolone Sodium Succinate (Methylprednisolone Sod Succ 62.5 Mg/Ml 2ml Vial) 40 mg IVP Q8HR JOAN Stop: 12/05/24 13:59 Last Admin: 11/28/24 15:08 Dose: 40 mg Ondansetron HCl (Ondansetron Inj 2 Mg/Ml Inj 2 Ml) 4 mg IVP Q6H PRN; Protocol PRN Reason: NAUSEA OR VOMITING Stop: 12/27/24 18:54 Pharmacy Consult (Pharmacy Renal Dose Adjustment 1 Ea) 1 each XX PRN PRN PRN Reason: CONSULT Stop: 12/27/24 19:45 Pharmacy Consult (Vancomycin Pharmacy To Dose 1 Each Each) 1 each IV QDAY PRN PRN Reason: CONSULT Stop: 12/27/24 21:06 Discontinued Medications Bumetanide (Bumetanide Inj 0.25 Mg/Ml Vial 4 Ml) 2 mg IVP X1 ONE Stop: 11/27/24 19:07 Last Admin: 11/27/24 19:16 Dose: 2 mg Fentanyl Citrate (Fentanyl Cit Inj 50 Mcg/Ml Amp 2ml) 50 mcg IVP X1 ONE Stop: 11/27/24 18:17 Last Admin: 11/27/24 18:30 Dose: 50 mcg Norepinephrine/Dextrose (Levophed In D5w 8mg/250ml) 8 mg in 250 mls @ 8.292 mls/hr IV .Q24H PRN; Protocol PRN Reason: PER PROTOCOL Stop: 12/27/24 16:30 Ceftriaxone Sodium 1,000 mg/ (Sodium Chloride) 50 mls @ 100 mls/hr IV X1 ONE Stop: 11/27/24 17:56 Last Infusion: 11/27/24 18:26 Dose: Infused Azithromycin 500 mg/ Sodium (Chloride) 250 mls @ 250 mls/hr IV QDAY@1400 JAON Stop: 12/05/24 13:59 Azithromycin 500 mg/ Sodium (Chloride) 250 mls @ 250 mls/hr IV X1 ONE Stop: 11/27/24 18:29 Last Infusion: 11/27/24 19:39 Dose: Infused Piperacillin/Tazobactam/Dextrose (Zosyn) 2.25 gm in 50 mls @ 100 mls/hr IV Q8HR JOAN; Protocol Stop: 12/04/24 21:59 Vancomycin HCl 1,000 mg/ (Sodium Chloride) 250 mls @ 120 mls/hr IV X1 ONE Stop: 11/27/24 23:34 Last Admin: 11/27/24 22:00 Dose: 120 mls/hr Vancomycin/Sodium Chloride (Vancomycin/Ns 500 Mg Ivpb) 100 mls @ 120 mls/hr IV X1 ONE Stop: 11/28/24 10:49 Last Admin: 11/28/24 10:35 Dose: 120 mls/hr Prednisone (Prednisone 20 Mg Tablet) 60 mg PO QDAY [facility] Stop: 12/02/24 09:48 Last Admin: 11/28/24 10:33 Dose: 60 mg Assessment & Plan Plan 84-year-old male with past medical history of coronary artery disease status post CABG in 2001 and status post pacemaker implant May 2023, hypothyroidism, prostate cancer status post radiation and currently on hormonal treatments, 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 Patient was admitted to the ICU for shock requiring vasopressors. Cardiology consulted for CHF exacerbation and elevated troponins. #Stage IV Pulmonary Arterial hypertension #Right heart Failure #Pulmonary Fibrosis #NSTEMI, likely type II #Coronary Artery disease s/p stents Presented with clinical signs such as shortness of breath, dyspnea on exertion, bilateral leg swelling CXR: Showing vascular congestion aned prominent heart failure BNP: 1845, troponin elevated 0.486 already downtrended EKG shows paced ventricular beats Echo: Right atrium is dilated. Right ventricle is markedly dilated 5.5 cm in diameter twice the size of left ventricle with right ventricle pressure and volume overload consistent with severe pulmonary hypertension. Severe right ventricular systolic dysfunction. Left ventricle is normal in size with flattening of the septum which is deviated towards the left ventricle due to increased RV systolic pressure rest of the left ventricle wall motion normal ejection fraction of 45 to 50% preserved. Left atrium is mildly dilated. Aortic valve sclerosis no stenosis. Mitral valve thickening trace to mild mitral regurgitation. Severe tricuspid regurgitation with TR velocity 4 m/s estimated pulmonary artery pressure 80 mmHg consistent with severe pulmonary hypertension. Moderate pulmonic valve regurgitation. Dilated inferior vena cava 2.3 cm due to increased right heart pressures. Patient has stage IV PAH life expectancy is not very good <6months, treatment for this would include heartlung transplant which patient is not a surgical candidate, other options include ambrisertan and taldalafil but disease is very advanced at this point would likely not benefit. Goals of care disscussion had with the family, Cardiology team and ICU team present discussed patients prognosis and family understood that patients condition is very poor. All questions were answered and family decided to make the patient comfort care. - ICU will monitor overnight and patient continues to deteriorate will inform the family to determine if comfort measure will be intiated. #CASSANDRA #Lactic acidosis (resolved) #Non-anion gap metabolic acidosis #Leukocytosis #Insulin-dependent diabetes mellitus #Hypothyroidism #UTI #GNR bacteremia #Pneumonia - as per primary team. Case discussed with my attending Dr. Vijay Campbell MD PGY-2 Disclaimer: Despite multiple revisions, due to the dictation software being used, the document bellow may not be free of grammatical errors including phonetic/typographic errors. However, this does not deter from our commitment to providing health care in the patient's best interest in mind.
[2024-11-28] MEDS: [UNRECOGNIZED DRUG - OTHER] TOP (18:34)
[2024-11-28] MEDS: MENTHOL TOP (18:34)
[2024-11-28] MEDS: Norepinephrine/D5W 8mg/250ml 8 MG/250 ML BAG 14.926 MG IV (21:04)
[2024-11-29] VITALS (42 sets, daily range): BP systolic 64–127; BP diastolic 32–94; PULSE 67–122; RESP 7–32; TEMP 36.3–36.7; O2SAT 83–98
[2024-11-29] MEDS: HYDROcodone/APAP 5/325 TABLET 1 TAB PO (04:23)
[2024-11-29] MEDS: Magnesium Sulfate 4 GM Ivpb 4 GM/50 ML BAG IV (05:26)
[2024-11-29 05:36] LABS: Basophils # (Auto) 0.0 Thou/mm3 (0.0-0.2); Basophils % (Auto) 0 % (0-2.5); Eosinophils # (Auto) 0.0 Thou/mm3 (0.0-0.5); Eosinophils % (Auto) 0 % (0-10); Hematocrit 44.8 % (41.0-53.0); Hemoglobin 14.0 g/dL (13.5-16.0); Immature Granulocytes Auto 0.03 Thou/mm3 (0.00-0.00); Lymphocytes # (Auto) 0.3 Thou/mm3 (1.0-4.8); Lymphocytes % (Auto) 3 % (10-50); Mean Corpuscular HGB Conc 31.3 g/dl (31.0-37.0); Mean Corpuscular Hemoglobin 30.8 pg (25.0-35.0); Mean Corpuscular Volume 99 fL (80-100); Monocytes # (Auto) 0.2 Thou/mm3 (0.0-0.8); Monocytes % (Auto) 2 % (0-12); Neutrophils # (Auto) 10.2 Thou/mm3 (1.8-7.7); Neutrophils % (Auto) 95 % (37-80); Nucleated Red Blood Cell # 0.07 Thou/mm3 (0.00-0.00); Nucleated Red Blood Cell % 1 /100 WBC (0); Platelet Count 163 Thou/mm3 (140-440); RDW Standard Deviation 68.6 fL (35.1-43.9); Red Blood Count 4.55 Miln/mm3 (4.50-5.90); White Blood Count 10.7 Thou/mm3 (3.8-10.6)
--- NOTE | 2024-11-29 05:49 | EVENTNT_ITS ---
Documentation for date of: 11/29/24 Event Note Event Note: At 5:45 AM, the nurse reported that the patient had become unresponsive. The cardiac rhythm displayed torsades de pointes/V-tach, but the patient had a pacemaker in place. His condition progressively worsened, necessitating an increased dosage of Levophed. The patient is DNR. Throughout the day, both the day shift team and cardiology engaged in extensive discussions regarding the goals of care with the patient's . The plan was to transition the patient to comfort care the following morning. However, if the patient's condition deteriorated, as anticipated, he would be transitioned to comfort care sooner, allowing him to pass peacefully. I personally contacted the and spoke with her. She confirmed that the patient's wishes were for a peaceful passing. He had expressed that he was ready to let go and his final wish was to be comfortable and at peace when it happened. The reiterated that they did not want any aggressive interventions and that, if it was time for him to pass, it would be best for him to be as comfortable as possible. The patient had already been exhibiting signs of distress, including apneic episodes. After an extensive discussion with the , it was confirmed that the patient would be transitioned to comfort care, in accordance with his prior wishes. Both the patient?s and ?s wishes will be fully respected. Patient care was discussed with attending physician Dr. Jose A Villeda MD PGY-2 I have carefully reviewed this document. Due to imperfections in the voice software, there could be grammatical errors including phonetic/typographic erro rs. This in no way compromises the medical care the patient is receiving
[2024-11-29] MEDS: HYDROmorphone INJ 2 MG/ML VIAL 0.5 MG IVP (05:56)
[2024-11-29 06:03] LABS: Alanine Aminotransferase 24 U/L (10-49); Albumin, Serum 3.5 gm/dL (3.4-4.8); Albumin/Globulin Ratio 1.3 (1.2-2.2); Alkaline Phosphatase 155 U/L (46-116); Anion Gap 17 (7-16); Aspartate Amino Transferase 43 U/L (0-34); Bilirubin,Total 0.5 mg/dL (0.3-1.2); Blood Urea Nitrogen 56 mg/dL (9-23); Calcium 8.9 mg/dL (8.3-10.6); Calcium (Corrected) 9.3 mg/dL (8.5-10.1); Carbon Dioxide 18.6 mMol/L (20.0-31.0); Chloride 101 mMol/L (98-107); Globulin 2.8 gm/dL (2.3-3.5); Glucose 191 mg/dL (74-106); Magnesium 2.1 mg/dL (1.6-2.6); Osmolality,Calculated 294 (275-295); Phosphorous 7.0 mg/dL (2.4-5.1); Sodium 137 mMol/L (136-145); Total Protein 6.3 gm/dL (5.7-8.2); Vancomycin,Random 11.9 mcg/mL
[2024-11-29 06:04] LABS: BUN/Creatinine Ratio 14 Ratio (12-20); Creatinine (Component) 4.0 mg/dL (0.6-1.3); Estimated Creatinine Clearance 16.6 mL/min (>60); eGFR 14 See Note
[2024-11-29 06:05] LABS: Potassium 6.4 mMol/L (3.4-5.1)
[2024-11-29] MEDS: MORPHINE SULF INJ 4 MG/ML VIAL 2 MG IVP ×3 (06:18→13:41)
[2024-11-29] MEDS: SCOPOLAMINE 1 MG TDSY TOP (06:28)
--- NOTE | 2024-11-29 08:09 | PC.SS ---
GLASS SILVERER informed by bedside nurse that patient has been transitioned to comfort care.
--- NOTE | 2024-11-29 08:31 | ESPR_ITS ---
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 According to patient's , he has been getting progressively worsening fatigue, malaise, and shortness of breath over the past 2 weeks. At baseline, he uses 5 L O2 (began using 3 L O2 in April 2021) and experiences shortness of breath on minimal exertion such as transferring from the bed to the commode. However, over the past week, he has been getting shortness of breath even at rest. At baseline, he has a 45 degree orthopnea and for the past week has been experiencing episodes of PND as well. His legs are normally swollen at baseline but have not worsened over the past week. He reports compliance with his medication and denies eating any salty food recently. However, patient's endorses that he constantly drinks more than 50 ounces of iced water per day along with 7-Up. He endorses burning and pain with urination but denies any complaints of chest pain/pressure or palpitations as well as any nausea/vomiting, fevers, sick contacts or recent travel. Patient's says that he has not left the house in 1-1/2 years and only interacts with her. 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 He dropped out of high school in grade 10 and has been to his for the past 60 years but they have no children. Previously was a heavy drinker but quit about 40 years ago. Denies smoking history but has extensive secondhand smoke exposure from his friends and family. Denies any illicit drug use. Patient's Code Status is DNR/DNI. Medications: PO Bumex 2 mg qAM, PO Synthroid 0.025 mcg qAM, PO Entresto 24-26 BID, PO ferrous sulfate 325 BID, PO omeprazole 20 mg BID, PO aspirin 162 mg BID, PO nitrofurantoin 50 mg qHS, PO spironolactone 25 mg qHS, PO tadalafil 20 mg qHS, PO atorvastatin 20 mg qHS, Lantus Solostar Pen 3 mL 20 U qHS, PO [place] 5- 325 prn, PO phenazopyridine 100 mg prn In the ED, vitals showed: BP 75/50 HR 102 RR 21 Temp 97.6 SpO2 98% on 15 L Oxygen Mask ED Course: CBC showed WBC 15.5, hemoglobin 12.6 (MCV 98, RDW 66.8), and platelet count 144. ABG of right radial artery showed pH 7.32, pCO2 45, pO2 87, and HCO3 23.3. CMP showed potassium 5.3, BUN 40, creatinine 3.4 (baseline of 1.0 from 04/21/24), eGFR 17, lactic acid 3.0, alkaline phosphatase 154, troponin I 0.486, BNP 1845, albumin 3.1, and procalcitonin 4.62. UA showed turbid, yellow urine with 2+ protein, 2+ blood, positive leukocyte esterase, U RBC 20, U WBC 2356, U squamous epithelial cells 14, and 3+ bacteria. Imagin11/27/24 CXR showed prominent congestive heart failure with enlarged cardiac contour, ectatic enlarged thoracic aorta, prominent vascular congestion with perihilar edema, and satisfactory positioning of pacemaker. It also showed findings that were suspicious for significant bilateral pneumonia. In the ED, patient was started on IV Levophed 0.05 and given IV ceftriaxone 1 gm x 1, IV azithromycin 500 mg x 1, IV fentanyl 50 mcg x 1, and IV Bumex 2 mg x 1. Patient was admitted for the work-up and management of undifferentiated shock requiring pressors in the setting of likely CHF exacerbation, CASSANDRA, lactic acidosis, possible pneumonia, and UTI. Cardiology has been consulted. Interval History 11/28/24: Overnight, patient was given [place] x 1 and Dilaudid x 1 for apparent chronic pain. His urine output after being given IV Bumex 2 mg x 1 last night @ 7:16 PM has been about 15-30 cc/hr of thick, purulent urine. Patient was examined at bedside; he appears much the same as he did upon admission. Bedside echocardiogram seems to show improved heart contractility and EF. It also showed dilated RA and RV as well as barely mobile mitral valve (in the setting of confirmed severe pulmonary hypertension, RVSP 63 and RAP 15 in April 2023). NICOM w/ PLR indicated that patient was not fluid responsive and that his shock was likely distributive in etiology rather than cardiogenic from CHF exacerbation as previously suspected; thus, patient's shock is likely 2/2 a septic vasodilatory response in the setting of definite UTI, GNR bacteremia, and possible pneumonia. Current plan is to start him on a 2-[id number] of PO prednisone 60 mg qD for possible flare of pulmonary fibrosis and have a chest CT without contrast taken while he is on Precedex to make him move less for a better picture to assess his ongoing respiratory issues. If patient is unresponsive we will consider offering the family the option of comfort measures as Cardiology believes his current heart function is too poor to be salvaged. 11/29/24: overnight patient developed respiratory distress, his pressor support requirement went up, family was contacted and decided to proceed with comfort care. Today morning patient is seen at the bedside. He appears comfortable, family is at the bedside. Will continue comfort care. Patient will be downgraded to medical floor. Exam Vital Signs Temp Pulse Resp BP Pulse Ox O2 Del Method O2 Flow Rate 97.4 F 73 23 H 89/40 L 89 L Oxy Mask 5 11/29/24 07:00 11/29/24 08:00 11/29/24 08:00 11/29/24 08:00 11/29/24 08:00 11/27/24 20:10 11/29/24 06:53 FiO2 92 11/28/24 14:01 Narrative Exam General: A/O x3 elderly male not in distress. Skin: Overall dry but intact and without obvious rash. Head: Normocephalic, atraumatic. Eyes: PERRL, EOMI. Anicteric, vision grossly intact. Ears: No ear pain, no ear discharge, Hearing grossly intact. Extra skin growth originating from tragus noted on left ear. Nose: No nasal discharge. Mouth/Throat: Oral mucosa moist. No obvious lesions in oropharynx. Dentition in fairly good shape. Cardiovascular: Regular rate and regular rhythm, 2 cm JVD, no murmur, or carotid bruits. +S1/S2. Vertical cicatrix over sternum. Respiratory: Diffuse crackles of posterior lung [place] bilaterally, particularly at the bases, respirations seem somewhat labored, expiratory groaning, no wheezing. No accessory muscle use. Gastrointestinal: Non-tender, especially suprapubic region. Soft, non-distended, no palpable masses. No guarding or rebound tenderness. Normoactive bowel sounds present. Genitourinary: Diffusely swollen scrotum without palpable masses. Extremities: Severe dryness of bilateral lower extremities with flaking and scaling that is worse on the left. Mild duskiness of plantar surface of right hallux and more pronounced duskiness of left hallux and left second toe. 4+ pitting edema of right foot up to hips and 1+ pitting edema of left foot up to hips. 1+ radial pulse bilaterally. Neuro: limited exam due to comfort care. Objective Labs 11/29/24 04:29 11/29/24 04:29 Labs: Laboratory Results - last 24 hr 11/28/24 11/28/24 11/29/24 07:42 12:33 04:29 WBC 10.7 H RBC 4.55 Hgb 14.0 Hct 44.8 MCV 99 MCH 30.8 MCHC 31.3 RDW Std Deviation 68.6 H Plt Count 163 D Neut % (Auto) 95 H Lymph % (Auto) 3 L [place] % (Auto) 2 Eos % (Auto) 0 Baso % (Auto) 0 Neut # (Auto) 10.2 H Lymph # (Auto) 0.3 L [place] # (Auto) 0.2 Eos # (Auto) 0.0 Baso # (Auto) 0.0 Immature Gran # (Auto) 0.03 H Absolute Nucleated RBC 0.07 H Immature Gran % 0 Nucleated RBC % 1 H Sodium 137 Potassium 6.4 H* D Chloride 101 Carbon Dioxide 18.6 L Anion Gap 17 H BUN 56 H Creatinine 4.0 H D Estim Creat Clear Calc 16.6 L eGFR 14 L* BUN/Creatinine Ratio 14 Glucose 191 H D Calculated Osmolality 294 Lactic Acid 1.8 Calcium 8.9 Corrected Calcium 9.3 Phosphorus 7.0 H Magnesium 2.1 Total Bilirubin 0.5 AST 43 H ALT 24 Alkaline Phosphatase 155 H Total Protein 6.3 Albumin 3.5 Globulin 2.8 Albumin/Globulin Ratio 1.3 Random Vancomycin 11.9 Influenza A (Rapid) Negative Influenza B (Rapid) Negative ABG Interpretation ABG results: 11/27/24 18:22 ABG pH 7.32 L ABG pCO2 45 ABG pO2 87 ABG HCO3 23 ABG O2 Saturation 97 ABG Base Excess -3 Quality Measures Quality Measures comfort care/end of life Advance care planning discussed with:: spouse and sibling Assessment & Plan Assessment Current Active Medications: Generic Name Dose Route Start Last Admin Trade Name Freq PRN Reason Stop Dose Admin Acetaminophen 650 mg 11/27/24 18:55 Acetaminophen 325 Mg Tablet PO 12/27/24 18:54 Q6H PRN Fever >100 or pain 1-3 Hydrocodone Bitart/Acetaminophen 1 tab 11/27/24 19:04 11/29/24 04:23 Hydrocodone/Apap 5/325 Tablet PO 12/02/24 19:03 1 tab On Hold: 11/29/24 06:12 Q6HR PRN Administration Comment: COMFORT CARE ORDERS PAIN SCALE 4-10(Mod-Sev ACTIVE Albuterol/Ipratropium 3 ml 11/27/24 18:55 Albuterol/Ipratropium (Duoneb) Rt Divine 3 Ml Nebu INH 12/27/24 18:54 Q2HR PRN SHORTNESS OF BREATH OR WHEEZE Artificial Tears 1 drop 11/29/24 05:45 Artificial Tears 225 Drop/15 Ml Btl BOTH EYES 12/29/24 05:44 Q4HR PRN Dry eyes Hydromorphone HCl 0.5 mg 11/27/24 19:09 11/29/24 05:56 Hydromorphone Inj 2 Mg/Ml Vial IVP 12/02/24 19:08 0.5 mg On Hold: 11/29/24 06:13 Q4HR PRN Administration Comment: COMFORT CARE ORDERS BREAKTHROUGH PAIN ACTIVE Protocol Dexmedetomidine/Sodium Chloride 400 mcg in 100 mls @ 4.38 mls/hr 11/28/24 09:58 Precedex Ivpb IV 12/28/24 09:57 .[id number] PRN Prior to CT chest for sedation Protocol 0.2 MCG/KG/HR Morphine Sulfate 100 mls @ 1 mls/hr 11/29/24 05:45 Morphine Sulfate Iv Drip 100mg/100ml IV 12/04/24 05:44 .Q24H PRN PAIN (COMFORT CARE) Protocol 1 MG/HR Menthol/Methyl Salicylate 1 gm 11/28/24 18:01 11/28/24 18:34 Methyl Salic/Menthol Oint 28 Gm Tube TOP 12/28/24 18:00 1 appln QID PRN Administration Arthritis Morphine Sulfate 2 mg 11/29/24 05:45 11/29/24 07:26 Morphine Sulf Inj 4 Mg/Ml Vial IVP 12/04/24 05:44 2 mg Q30M PRN Administration PAIN Ondansetron HCl 4 mg 11/27/24 18:55 Ondansetron Inj 2 Mg/Ml Inj 2 Ml IVP 12/27/24 18:54 Q6H PRN NAUSEA OR VOMITING Protocol Pharmacy Consult 1 each 11/27/24 19:46 Pharmacy Renal Dose Adjustment 1 Ea XX 12/27/24 19:45 PRN PRN CONSULT Scopolamine 1 mg 11/29/24 05:45 11/29/24 06:28 Scopolamine 1 Mg Tdsy TOP 12/29/24 05:44 1 mg Q3D JOAN Administration Plan Patient is an 84-year-old male with a PMH of CAD status post CABG 2001 and pacemaker implant in May 2023, hypothyroidism, prostate cancer status post radiation therapy in 2001 and hormonal treatments (uncertain of remission status, last visit to the oncologist was in 2019), 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 Patient was admitted for the work-up and management of undifferentiated shock requiring pressors in the setting of likely CHF exacerbation, CASSANDRA, lactic acidosis, possible pneumonia, and UTI. Cardiology has been consulted. NEURO No active problems. CARDIO #Shock, likely distributive 2/2 septic vasodilation 2/2 UTI and possible pneumonia. #Type II NSTEMI (demand ischemia). #CAD s/p CABG. #Acute decompensated chronic systolic and diastolic heart failure exacerbation [last EF 45% from 2023]. -d/c current tx, comfort care. PULM #Pulmonary fibrosis (flare) from second-hand smoke exposure. #Pulmonary hypertension. -d/c current tx, comfort care. GI #No active problems. NEPHRO #CASSANDRA. #Lactic acidosis (resolved). #Non-anion gap metabolic acidosis. -d/c current tx, comfort care. HEME #Leukocytosis. -d/c current tx, comfort care. ENDO #Insulin-dependent diabetes mellitus. #Hypothyroidism. -d/c current tx, comfort care. ID #[id number]. #GNR bacteremia. #??Pneumonia. -d/c current tx, comfort care. Disposition: downgraded to medical floor. CODE STATUS: DNR/DNI, comfort care. Patient plan of care was discussed with the attending pile driving setter, Dr. Norton. Logan Leiva MD, PGY 3. Disclaimer: This note was dictated by speech recognition. Minor errors in heat treat worker may be present due to voice recognition software. Attending Provider Attestation/Addendum pt transitioned to comfort overnight, breathing labored, family at bedside. started on morphine gtt as well as PRN diazepam for anxiety. He will be downgraded to medsur case d/w ICU team labs, imaging, records reviewed ~15min required for eval, review, discussion and formulation of POC
[2024-11-29] MEDS: Morphine IV Drip 100mg/100ml 100 ML IV (09:26)
[2024-11-29] MEDS: DIAZEPAM INJ 5 MG/ML VIAL 2 ML 2 MG IVP (13:02)
--- NOTE | 2024-11-29 16:27 | PD.DPN ---
Documentation for date of: 11/29/24 Pronouncement Note Summary Additional details: I was called to patient's bedside to pronounce that Etlon Leyva, 84, and male, has . No spontaneous movements present. No response to verbal or tactile stimuli. Pupils mid-dilated, fixed, and unresponsive to light and absent corneal reflex. No breath sounds appreciated over either lung salinas. No heart sounds auscultated over entire precordium. Patient pronounced at 16:48 on 11/29/2024. Confirmed and witnessed by nurse. Family was notified and condolences were given. Additional Data Confirmation of : no pulse, no respirations, no heart sounds and pupils fixed and dilated Family: at bedside Additional persons at bedside: other Attending/PCP notified?: Yes Attending physician: Bogdan Burger MD Was code activated?: No litigation examiner notified?: Yes Advance directives: Yes
--- NOTE | 2024-11-29 16:28 | DES_ITS ---
<Statement entered by Froilan Hercules MD - 11/29/24 20:51> Note reviewed and agree with care plan as documented. Please refer to the note below for further details. Plan discussed with attending physician Dr. Jennyfer Hercules MD PGY-2 Internal Medicine Documentation for date of: 11/29/24 Summary Date and Time Date of admission: 11/27/24 18:55 Summary Details: Patient was accompanied by family members at the hour of . Hospital Course: Patient is an 84-year-old male with a PMH of CAD status post CABG 2001 and pacemaker implant in May 2023, hypothyroidism, prostate cancer status post radiation therapy in 2001 and hormonal treatments (uncertain of remission status, last visit to the oncologist was in 2019), chronic systolic and diastolic HFrEF with last echo showing 45% in 2023, s/p CABG 2001, and valve repair 2013, and chronic urinary retention using In-N-Out catheter at home, and s/p vasectomy who presented to the [facility] ED in the evening of 11/27/24 for a chief complaint of worsening shortness of breath, PND, fatigue, malaise over the previous 2 weeks. While being on home O2 5L via NC, experiencing orthopnea, and suffering pedal edema, patient had started to be SOB even at rest. Pt endorsed increased fluid intake, dysuria. He denied chest pressure, chest pain, or palpitations. In the ED, vitals remarkable for SpO2 98% on 15 L Oxygen Mask. Labs significant for WBC 15.5, K+ 5.3, BUN 40, creatinine 3.4 (baseline of 1.0 from 04/21/24), eGFR 17, lactic acid 3.0, troponin I 0.486, BNP 1845, procalcitonin 4.62. UA positive leukocyte esterase, U WBC 2356, and 3+ bacteria. Urine thick and purulent. CXR showed prominent congestive heart failure with enlarged cardiac contour, e ctatic enlarged thoracic aorta, prominent vascular congestion with perihilar edema, and satisfactory positioning of pacemaker. It also showed findings that were suspicious for significant bilateral pneumonia. Patient was admitted for the work-up and management of undifferentiated shock requiring pressors in the setting of likely CHF exacerbation, CASSANDRA, lactic acidosis, possible pneumonia, and UTI. started on IV Levophed 0.05 and given IV ceftriaxone 1 gm x 1, IV azithromycin 500 mg x 1. Echocardiogram showed dilated RA and RV as well as barely mobile mitral valve (in the setting of confirmed severe pulmonary hypertension). NICOM w/ PLR indicated that patient was not fluid responsive and that his shock was likely distributive likely 2/2 a septic vasodilatory response in the setting of definite UTI, GNR bacteremia, and possible pneumonia. Started him on a [id number] of PO prednisone 60 mg qD for possible flare of pulmonary fibrosis and treated pneumonia based on chest xray findings with vancomycin. As urine ctx grew Klebsiella and Bctx came back positive in both of two bottles, added Zosyn to antibiotic regiment. WBC trended down to 10.7. On 11/29 patient developed respiratory distress, his pressor support requirement went up, family was contacted and decided to proceed with comfort care. Pt was downgraded to medical floor. At Patient at 16:38. Additional Data Confirmation of as documented by pronouncing clinician: no pulse, no respirations, no heart sounds and pupils fixed and dilated Family: at bedside Additional persons at bedside: other Attending/PCP notified?: Yes Attending physician: Bogdan Burger MD Was code activated?: No eligibility examiner notified?: Yes Advance directives: Yes Hospice patient?: No Visit Providers Provider Primary care physician: Physician No Primary/Family Pronouncing clinician: Froilan Hercules Diagnosis PCOD Cause of : Cardiopulmonary arrest Discharge Plan Plan Patient Disposition: Prescriptions/Referrals Referrals: No Primary/Family,Physician [Primary Care Provider] Patient/Caregiver Discharge Instructions Print Language: Mongolian
--- NOTE | 2024-11-29 16:55 | ESPR_ITS ---
<Statement entered by Froilan Hercules MD - 11/29/24 20:51> Note reviewed and agree with care plan as documented. Please refer to the note below for further details. Plan discussed with attending physician Dr. Jennyfer Hercules MD PGY-2 Internal Medicine Documentation for date of: 11/29/24 Subjective Subjective Interval history: Patient was seen lying in bed comfortably and examined. Patient was accompanied by sister and niece at bedside. He was sleeping in bed, and often apneic. RR 4-7 bpm. Patient was not arousable to calls of his name. Last time he interacted with family members was two days ago. Telemetry showing ventricular tachycardia. Patient was seen in ICU bed just before transfer to floors. Family had pursued comfort measures and decided to forego medical treatment. Family stated that this decision was in accord with the patient's personal wish as they had known him. Hospital Course: Patient is an 84-year-old male with a PMH of CAD status post CABG 2001 and pacemaker implant in May 2023, hypothyroidism, prostate cancer status post radiation therapy in 2001 and hormonal treatments (uncertain of remission status, last visit to the oncologist was in 2019), chronic systolic and diastolic HFrEF with last echo showing 45% in 2023, s/p CABG 2001, and valve repair 2013, and chronic urinary retention using In-N-Out catheter at home, and s/p vasectomy who presented to the [facility] ED in the evening of 11/27/24 for a chief complaint of worsening shortness of breath, PND, fatigue, malaise over the previous 2 weeks. While being on home O2 5L via NC, experiencing orthopnea, and suffering pedal edema, patient had started to be SOB even at rest. Pt endorsed increased fluid intake, dysuria. He denied chest pressure, chest pain, or palpitations. In the ED, vitals remarkable for SpO2 98% on 15 L Oxygen Mask. Labs significant for WBC 15.5, K+ 5.3, BUN 40, creatinine 3.4 (baseline of 1.0 from 04/21/24), eGFR 17, lactic acid 3.0, troponin I 0.486, BNP 1845, procalcitonin 4.62. UA positive leukocyte esterase, U WBC 2356, and 3+ bacteria. Urine thick and purulent. CXR showed prominent congestive heart failure with enlarged cardiac contour, ectatic enlarged thoracic aorta, prominent vascular congestion with perihilar edema, and satisfactory positioning of pacemaker. It also showed findings that were suspicious for significant bilateral pneumonia. Patient was admitted for the work-up and management of undifferentiated shock requiring pressors in the setting of likely CHF exacerbation, CASSANDRA, lactic acidosis, possible pneumonia, and UTI. started on IV Levophed 0.05 and given IV ceftriaxone 1 gm x 1, IV azithromycin 500 mg x 1. Echocardiogram showed dilated RA and RV as well as barely mobile mitral valve (in the setting of confirmed severe pulmonary hypertension). NICOM w/ PLR indicated that patient was not fluid responsive and that his shock was likely distributive likely 2/2 a septic vasodilatory response in the setting of definite UTI, GNR bacteremia, and possible pneumonia. Started him on a [id number] of PO prednisone 60 mg qD for possible flare of pulmonary fibrosis. As urine ctx grew Klebsiella and Bctx came back positive in both of two bottles, added Zosyn and vancomycin to antibiotic regiment. WBC trended down to 10.7. On 11/29 patient developed respiratory distress, his pressor support requirement went up, family was contacted and decided to proceed with comfort care. Pt was downgraded to medical floor.. Exam Vital Signs Temp Pulse Resp BP Pulse Ox O2 Del Method O2 Flow Rate 97.4 F 87 9 L 71/38 L 92 L Oxy Mask 5 11/29/24 07:00 11/29/24 15:00 11/29/24 15:00 11/29/24 15:00 11/29/24 15:00 11/27/24 20:10 11/29/24 06:53 FiO2 92 11/28/24 14:01 Narrative Exam General: A/O x3 elderly male not in distress. Skin: Overall dry but intact and without obvious rash. Head: Normocephalic, atraumatic. Eyes: PERRL, EOMI. Anicteric, vision grossly intact. Ears: No ear pain, no ear discharge, Hearing grossly intact. Extra skin growth originating from tragus noted on left ear. Nose: No nasal discharge. Mouth/Throat: Oral mucosa moist. No obvious lesions in oropharynx. Dentition in fairly good shape. Cardiovascular: Regular rate and regular rhythm, 2 cm JVD, no murmur, or carotid bruits. +S1/S2. Vertical cicatrix over sternum. Respiratory: Diffuse crackles of posterior lung [place] bilaterally, particularly at the bases, respirations seem somewhat labored, expiratory groaning, no wheezing. No accessory muscle use. Gastrointestinal: Non-tender, especially suprapubic region. Soft, non-distended, no palpable masses. No guarding or rebound tenderness. Normoactive bowel sounds present. Genitourinary: Diffusely swollen scrotum without palpable masses. Extremities: Severe dryness of bilateral lower extremities with flaking and scaling that is worse on the left. Mild duskiness of plantar surface of right hallux and more pronounced duskiness of left hallux and left second toe. 4+ pitting edema of right foot up to hips and 1+ pitting edema of left foot up to hips. 1+ radial pulse bilaterally. Neuro: limited exam due to comfort care. Objective Labs 11/29/24 04:29 11/29/24 04:29 Labs: Laboratory Results - last 24 hr 11/29/24 04:29 WBC 10.7 H RBC 4.55 Hgb 14.0 Hct 44.8 MCV 99 MCH 30.8 MCHC 31.3 RDW Std Deviation 68.6 H Plt Count 163 D Neut % (Auto) 95 H Lymph % (Auto) 3 L [place] % (Auto) 2 Eos % (Auto) 0 Baso % (Auto) 0 Neut # (Auto) 10.2 H Lymph # (Auto) 0.3 L [place] # (Auto) 0.2 Eos # (Auto) 0.0 Baso # (Auto) 0.0 Immature Gran # (Auto) 0.03 H Absolute Nucleated RBC 0.07 H Immature Gran % 0 Nucleated RBC % 1 H Sodium 137 Potassium 6.4 H* D Chloride 101 Carbon Dioxide 18.6 L Anion Gap 17 H BUN 56 H Creatinine 4.0 H D Estim Creat Clear Calc 16.6 L eGFR 14 L* BUN/Creatinine Ratio 14 Glucose 191 H D Calculated Osmolality 294 Calcium 8.9 Corrected Calcium 9.3 Phosphorus 7.0 H Magnesium 2.1 Total Bilirubin 0.5 AST 43 H ALT 24 Alkaline Phosphatase 155 H Total Protein 6.3 Albumin 3.5 Globulin 2.8 Albumin/Globulin Ratio 1.3 Random Vancomycin 11.9 ABG Interpretation ABG results: 11/27/24 18:22 ABG pH 7.32 L ABG pCO2 45 ABG pO2 87 ABG HCO3 23 ABG O2 Saturation 97 ABG Base Excess -3 Quality Measures Quality Measures comfort care/end of life Advance care planning discussed with:: spouse and sibling Assessment & Plan Assessment Current Active Medications: Generic Name Dose Route Start Last Admin Trade Name Freq PRN Reason Stop Dose Admin Acetaminophen 650 mg 11/27/24 18:55 Acetaminophen 325 Mg Tablet PO 12/27/24 18:54 Q6H PRN Fever >100 or pain 1-3 Albuterol/Ipratropium 3 ml 11/27/24 18:55 Albuterol/Ipratropium (Duoneb) Rt Divine 3 Ml Nebu INH 12/27/24 18:54 Q2HR PRN SHORTNESS OF BREATH OR WHEEZE Artificial Tears 1 drop 11/29/24 05:45 Artificial Tears 225 Drop/15 Ml Btl BOTH EYES 12/29/24 05:44 Q4HR PRN Dry eyes Diazepam 2 mg 11/29/24 09:16 11/29/24 13:02 Diazepam Inj 5 Mg/Ml Vial 2 Ml IVP 12/04/24 09:15 2 mg Q15M PRN Administration ANXIETY Hydromorphone HCl 0.5 mg 11/27/24 19:09 11/29/24 05:56 Hydromorphone Inj 2 Mg/Ml Vial IVP 12/02/24 19:08 0.5 mg On Hold: 11/29/24 06:13 Q4HR PRN Administration Comment: COMFORT CARE ORDERS BREAKTHROUGH PAIN ACTIVE Protocol Morphine Sulfate 100 mls @ 1 mls/hr 11/29/24 05:45 11/29/24 15:00 Morphine Sulfate Iv Drip 100mg/100ml IV 12/04/24 05:44 3 mg/hr .Q24H PRN 3 mls/hr PAIN (COMFORT CARE) Titration Protocol 1 MG/HR Menthol/Methyl Salicylate 1 gm 11/28/24 18:01 11/28/24 18:34 Methyl Salic/Menthol Oint 28 Gm Tube TOP 12/28/24 18:00 1 appln QID PRN Administration Arthritis Morphine Sulfate 2 mg 11/29/24 05:45 11/29/24 13:41 Morphine Sulf Inj 4 Mg/Ml Vial IVP 12/04/24 05:44 2 mg Q30M PRN Administration PAIN Ondansetron HCl 4 mg 11/27/24 18:55 Ondansetron Inj 2 Mg/Ml Inj 2 Ml IVP 12/27/24 18:54 Q6H PRN NAUSEA OR VOMITING Protocol Scopolamine 1 mg 11/29/24 05:45 11/29/24 06:28 Scopolamine 1 Mg Tdsy TOP 12/29/24 05:44 1 mg Q3D JOAN Administration Plan Patient is an 84-year-old male with a PMH of CAD status post CABG 2001 and pacemaker implant in May 2023, hypothyroidism, prostate cancer status post radiation therapy in 2001 and hormonal treatments (uncertain of remission status, last visit to the oncologist was in 2019), chronic systolic and diastolic heart failure with reduced ejection fraction with last echo showing 45% in 2023, and chronic urinary retention using In-N-Out catheter at home who presented to the [facility] ED in the evening of 11/27/24 for a chief complaint of worsening shortness of breath. Patient was admitted for the work-up and management of undifferentiated shock requiring pressors in the setting of likely CHF exacerbation, CASSANDRA, lactic acidosis, possible pneumonia, and UTI. As patient's clinical picture degraded with echo findings showing virtually unviable and deteriorating heart function, worsening hypotension despite pressors, decision was made by surrogate decision maker to forgo medical treatment in favor of comfort measures. Patient was downgraded to floors on 11/29. See subjective for hospital course. #Shock, likely distributive 2/2 septic vasodilation 2/2 UTI and possible pneumonia #Acute decompensated chronic systolic and diastolic heart failure exacerbation #HFrEF (EF 45% 2023) #Type II NSTEMI (demand ischemia) #CAD s/p CABG Distributive shock in the setting of definite UTI, GNR bacteremia, and possible pneumonia (could also be pulmonary fibrosis flare) 11/27 BCx grew GNR. Pro-antionette 4.62. BNP 1845. Admission troponin I 0.486, then flat trend -Last echocardiogram in 2023 showed reduced EF of 45% -11/27/24 CXR showed prominent congestive heart failure with enlarged cardiac contour, ectatic enlarged thoracic aorta, prominent vascular congestion with perihilar edema, and satisfactory positioning of pacemaker. -11/28 bedside echo showed improved EF and contractility from 11/27 echo upon admission but also showed dilation of RA and RV as well as barely mobile mitral valve Held treatment for comfort measures. 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 #Pulmonary hypertension #Pneumonia -Previous chest CTs show evidence of pulmonary fibrosis -Negative Venous doppler ultrasound of BLE (-) -CXR showed bilateral pneumonia -MRSA nares negative -B ctx grew GNR in 2/2 bottles HELD in favor of comfort measures [id number] of PO prednisone 60 mg qD [11/28--] for pulmonary fibrosis flare HELD in favor of comfort measures IV vancomycin dosed by pharmacy [11/28--] (to cover for MRSA) #CASSANDRA -Creatinine 3.4 -> 4.0 today (baseline of 1.0 from 04/21/24) eGFR 14 - Underlying cause is likely distributive shock 2/2 infection (with antibiotics and Levophed) #Lactic acidosis (resolved) #Non-anion gap metabolic acidosis Likely 2/2 tissue hypoperfusion from shock Admission LA 3.0, 1.8 on 11/28 pH 7.32, pCO2 45 #UTI #GNR bacteremia #Leukocytosis Admission WBC 15.5, today 10.7 11/27 BCx shows 2/2 growth of GNR U ctx grew Klebsiella oxytoca HOLD in favor of comfort measures: IV Zosyn 2.25 gm q8HR [11/27--] based on previous urine culture results (11/08/24 UCx grew Klebsiella oxytoca sensitive to Zosyn) #Insulin-dependent diabetes mellitus #Hypothyroidism -11/07/24 hemoglobin A1c = 7.0 -11/28/24 TSH = 3.50 HELD in favor of comfort measures: Insulin sliding scale, PO Synthroid 25 mcg ACBR Disposition: Downgraded to floors DVT prophylaxis: SubQ Heparin 5000 q8HR GI prophylaxis: None Diet: NPO Ritter: Present Lines: Peripheral IV, Central IV CODE STATUS: DNR This case was discussed with my attending physician, Dr. Burger, and senior resident, Dr Delisa Garcia. Lydia Reyes DO PGY I Attending Provider Attestation/Addendum I have examined the patient, reviewed labs and imaging findings, discussed the case with the resident(s), and reviewed entered orders. I agree with the plan of care as outlined in this note. Dr. Jennyfer MD
--- NOTE | 2024-11-29 17:01 | PC.NURSE ---
Patient was pronounced by Dr. Hercules at 1638. This nurse contacted the [facility] at 1642, which the patient didn't qualify for tissue donation. This nurse also called the requested home of family of [facility] in [place], [place] at 1700. Patient has all IVs and coronel catheter removed ready for the home to pick him up. Family has been at patient's bedside.
== END 2024-11-29 16:35 | disposition expired | DRG 871 ==
LOC: SERX 18:43 → SERHOLD 19:54 → S2SX 20:40 → S3NX 11-29 16:10
PROVIDERS: Emergency Provider Emergency Medicine; Visit Provider Internal Medicine
DX: A41.9 Sepsis, unspecified organism (principal); I21.A1 Myocardial infarction type 2; I50.43 Acute on chronic combined systolic (congestive) and diastolic (congestive) heart failure; J18.9 Pneumonia, unspecified organism; R65.21 Severe sepsis with septic shock; N17.9 Acute kidney failure, unspecified; E87.20 Acidosis, unspecified; N39.0 Urinary tract infection, site not specified; I47.21 Torsades de pointes; R57.0 Cardiogenic shock; I11.0 Hypertensive heart disease with heart failure; I25.10 Atherosclerotic heart disease of native coronary artery without angina pectoris; Z95.1 Presence of aortocoronary bypass graft; Z85.46 Personal history of malignant neoplasm of prostate; Z92.3 Personal history of irradiation; E03.9 Hypothyroidism, unspecified; Z77.22 Contact with and (suspected) exposure to environmental tobacco smoke (acute) (chronic); I27.20 Pulmonary hypertension, unspecified; D69.6 Thrombocytopenia, unspecified; E11.9 Type 2 diabetes mellitus without complications; Z79.4 Long term (current) use of insulin; Z66 Do not resuscitate; Z95.0 Presence of cardiac pacemaker; J84.10 Pulmonary fibrosis, unspecified; I27.21 Secondary pulmonary arterial hypertension; I50.810 Right heart failure, unspecified; E87.5 Hyperkalemia; B96.1 Klebsiella pneumoniae [K. pneumoniae] as the cause of diseases classified elsewhere; Z51.5 Encounter for palliative care; R06.03 Acute respiratory distress; G89.29 Other chronic pain; I46.8 Cardiac arrest due to other underlying condition; F41.9 Anxiety disorder, unspecified; N40.0 Benign prostatic hyperplasia without lower urinary tract symptoms; Z55.5 Less than a high school diploma
CPT/HCPCS: 36415; 36600; 71045; 71250; 76770; 80053; 80202; 81001; 82803; 83605; 83735; 83880; 84100; 84145; 84439; 84443; 84484; 85025; 87040; 87077; 87081; 87086; 87186; 87502; 87811; 93005; 93306; 93970; 96365; 96366; 96372; 96375; 99285; J0456; J0696; J1171; J1644; J2270; J2543; J2919; J3010; J3360; J3373; J3475; J3490; J7050; J7512; A9270